=== PATIENT | male | born 1955 | race Caucasian/White ===

== ENCOUNTER 2018-08-30 19:12 | Inpatient (IN) | payer OTHER ==
--- NOTE | 2018-08-30 19:23 | PDOC ---
Rapid Medical Evaluation Time Seen by Provider: 08/30/18 19:20 Medical Evaluation: 08/30/18 19:21 I have performed a brief in-person evaluation of this patient. The patient presents with a chief complaint of:URI w/ cough w/ blood streaked sputum and fever x 3 days. No sob, CP or body aches. No recent travel or sick contacts. H/o HTN, former smoker (smoked for 20 years) Pertinent physical exam findings:BP 162/98 (did not take meds today), T 100.3 w / HR 114 I have ordered the following: tylenol/cxr/flu The patient will proceed to the ED for further evaluation Discharge Disposition - Diagnosis Cough - Referrals - Patient Instructions - Post Discharge Activity
[2018-08-30] MEDS ORDERED: ACETAMINOPHEN 325 MG TABLET (FP) PO ONE (19:25)
--- NOTE | 2018-08-30 19:34 | PDOC ---
History of Present Illness - General Chief Complaint: Cold Symptoms Stated Complaint: COUGH UP BLOOD/FEVER Time Seen by Provider: 08/30/18 19:20 History Source: Patient - History of Present Illness Initial Comments: 08/30/18 19:55 63 year old male cough and uri symptoms for the last 4 days today with persistent cough and coughed up clots. had tactile temps at home. patient reports shortness of breath patient also reports abdominal bloating, denies NVD , abdominal pain. denies recent weight loss, night sweats, hemoptysis prior to today. PMHX: former smoker x 20 years, hypertension PSHx: rectal surgery 4 years ago [facility] denies recent travel 08/30/18 23:09 Past History - Past Medical History Allergies/Adverse Reactions: Allergies Allergy/AdvReac Type Severity Reaction Status Date / Time No Known Allergies Allergy Verified 08/30/18 19:38 Home Medications: Ambulatory Orders Enalapril Maleate [Vasotec -] 5 mg PO BID #60 tablet 09/02/18 Levofloxacin [Levaquin] 500 mg PO DAILY #4 tablet 09/02/18 Sodium Chloride Tablet - 1 gm PO DAILY #4 tablet 09/02/18 COPD: No - Suicide/Smoking/Psychosocial Hx Smoking History: Former smoker Have you smoked in the past 12 months: No Information on smoking cessation initiated: No Hx Alcohol Use: Yes (socially) Drug/Substance Use Hx: No Review of Systems - Review of Systems Able to Perform ROS?: Yes Is the patient limited Korean proficient: No Constitutional: Yes: Fever Respiratory: Yes: Cough, SOB with Exertion, SOB at Rest, Productive cough, Hemoptysis Cardiac (ROS): No: Symptoms Reported, See HPI, Chest Pain, Edema, Irregular Heart Rate, Lightheadedness, Palpitations, Syncope, Chest Tightness, Other ABD/GI: Yes: Other (bloatins) *Physical Exam - Vital Signs Last Vital Signs Temp Pulse Resp BP Pulse Ox 100.3 F H 114 H 19 162/98 100 08/30/18 19:23 18 19:23 12 19:23 08/30/18 19:23 08/30/18 19:23 - Physical Exam General Appearance: Yes: Appropriately Dressed HEENT: positive: Normal ENT Inspection Respiratory/Chest: positive: Lungs Clear, Normal Breath Sounds, Rales ( at bases ) Cardiovascular: positive: Tachycardia Gastrointestinal/Abdominal: positive: Normal Bowel Sounds, Soft. negative: Tender Musculoskeletal: positive: Normal Inspection Extremity: positive: Normal Capillary Refill, Normal Inspection, Normal Range of Motion Integumentary: positive: Normal Color, Dry, Warm Neurologic: positive: Fully Oriented, Alert, Normal Mood/Affect Moderate Sedation - Procedure Monitoring Vital Signs: Procedure Monitoring Vital Signs Temperature 100.3 F H 08/30/18 19:23 Pulse Rate 114 H 08/30/18 19:23 Respiratory Rate 19 08/30/18 19:23 Blood Pressure 162/98 08/30/18 19:23 O2 Sat by Pulse Oximetry (%) 100 08/30/18 19:23 ED Treatment Course - LABORATORY CBC & Chemistry Diagram: 09/02/18 05:30 09/02/18 05:30 Progress Note - Progress Note Progress Note: A pneumonia . SIRS; lung mass cbc blood clots lactic acid ua urine culture patient to be admitted for further management of care. Medical Decision Making - Medical Decision Making 08/30/18 20:48 CHEST xray : left upper lobe pneumonia, will CT chest with IV contrast 08/30/18 21:58 08/30/18 22:40 CT chest :very large central left lung mass invading the mediastinum and encasing left main pulmonary artery. The mass is strongly suspicious for malignancy. Postoperative lingula consolidation. Left pleural effusion. Mild mediastinal lymphadenopathy. Patient signed out to Dr. Talbert/ Dr. trevizo *DC/Admit/Observation/Transfer Diagnosis at time of Disposition: Mass of lung Pneumonia Qualifiers: Pneumonia type: due to unspecified organism Laterality: left Lung location: upper lobe of lung Qualified Code(s): J18.1 - Lobar pneumonia, unspecified organism - Discharge Dispostion Disposition: AGAINST MEDICAL ADVICE Condition at time of disposition: Fair Decision to Admit order: Yes - Prescriptions - Referrals - Patient Instructions - Post Discharge Activity
[2018-08-30] MEDS ORDERED: SODIUM CHLORIDE 1,000 ML IV STA (19:47)
[2018-08-30] MEDS ORDERED: ENALAPRIL MALEATE 5 MG TABLET (FP) PO ONE (19:47)
[2018-08-30] MEDS ORDERED: CEFTRIAXONE 1,000 MG in DEXTROSE 5%-WATER - 50 ML IVPB ONE (20:15)
[2018-08-30] MEDS ORDERED: AZITHROMYCIN IVPB 500 MG in DEXTROSE 5%-WATER - 250 ML IVPB ONE (20:15)
[2018-08-30] MEDS ORDERED: ENALAPRIL MALEATE 5 MG TABLET (FP) ONE (20:15)
[2018-08-30 20:25] LABS: VENOUS PC02 29.1 mmHg (38-52); VENOUS PH 7.45 (7.32-7.42); VENOUS PO2 63.6 mmHg (28-48)
[2018-08-30 20:27] LABS: BASO % 0.4 % (0-2.0); EOS % 1.4 % (0-4.5); HEMOGLOBIN 13.6 GM/dL (11.7-16.9); LYMPH % 17.3 % (8-40); MCH 31.8 pg (25.7-33.7); MCHC 35.7 g/dl (32.0-35.9); MEAN CELL VOLUME 89.1 fl (80-96); MEAN PLT VOLUME 7.1 fl (7.5-11.1); MONO % 10.3 % (3.8-10.2); NEUT % 70.6 % (42.8-82.8); PLATELET COUNT 309 K/MM3 (134-434); RBC 4.26 M/mm3 (4.00-5.60); RDW 12.8 % (11.9-15.9); WHITE BLOOD COUNT 6.8 K/mm3 (4.0-10.0)
[2018-08-30] MEDS ORDERED: AZITHROMYCIN IVPB 500 MG/250 ML BAG IVPB ONE (20:27)
[2018-08-30] MEDS ORDERED: CEFTRIAXONE 1 GM/50 ML BAG ONE (20:27)
--- NOTE | 2018-08-30 20:36 | PDOC ---
*Physical Exam - Vital Signs Last Vital Signs Temp Pulse Resp BP Pulse Ox 100.3 F H 114 H 19 162/98 100 08/30/18 19:23 08/30/18 19:23 08/30/18 19:23 08/30/18 19:23 08/30/18 19:23 ED Treatment Course - LABORATORY CBC & Chemistry Diagram: 08/30/18 20:09 08/30/18 20:09 - ADDITIONAL ORDERS Additional order review: Laboratory Results 08/30/18 20:09 VBG pH 7.45 H POC VBG pCO2 29.1 L POC VBG pO2 63.6 H Mixed VBG HCO3 20.1 08/30/18 20:09 RBC 4.26 MCV 89.1 MCHC 35.7 RDW 12.8 MPV 7.1 L Neutrophils % 70.6 Lymphocytes % 17.3 Monocytes % 10.3 H Eosinophils % 1.4 Basophils % 0.4 - Medications Given in the ED: ED Medications Discontinued Medications Generic Name Dose Route Start Last Admin Trade Name Freq PRN Reason Stop Dose Admin Acetaminophen 650 mg 08/30/18 19:25 08/30/18 19:42 Tylenol - PO 08/30/18 19:26 650 mg ONCE ONE Administration Enalapril Maleate 5 mg 08/30/18 19:47 08/30/18 20:23 Vasotec - PO 08/30/18 19:48 5 mg ONCE ONE Administration Medical Decision Making - Medical Decision Making 08/30/18 20:33 Evaluating pt with Nurse Practitioner and agree with her assessment and management of the case. 63 yo male with 20 pk yr h/o tobacco use p/w hemoptysis,fever and cxr with infiltrates. Will ct scan chest to r/o mass. Start antibiotics and admit. *DC/Admit/Observation/Transfer Diagnosis at time of Disposition: Pneumonia Qualifiers: Pneumonia type: due to unspecified organism Laterality: left Lung location: upper lobe of lung Qualified Code(s): J18.1 - Lobar pneumonia, unspecified organism - Referrals - Patient Instructions - Post Discharge Activity
[2018-08-30 20:57] LABS: ALBUMIN 3.4 g/dl (3.4-5.0); ALK PHOS 62 U/L (45-117); ANION GAP 10 MMOL/L (8-16); BILIRUBIN,TOTAL 0.5 mg/dL (0.2-1); BLOOD UREA NITROGEN 9 mg/dL (7-18); CALCIUM 8.3 mg/dL (8.5-10.1); CHLORIDE 97 mmol/L (98-107); CO2 23 mmol/L (21-32); CREATININE 0.9 mg/dL (0.55-1.3); GLUCOSE,RANDOM 130 mg/dL (74-106); POTASSIUM 4.1 mmol/L (3.5-5.1); SGOT/AST 14 U/L (15-37); SGPT/ALT 17 U/L (13-61); SODIUM 130 mmol/L (136-145); TOT PROT 7.2 g/dl (6.4-8.2)
[2018-08-30 23:12] LABS: URINE APPEARANCE CLEAR; URINE BILIRUBIN NEGATIVE (<2.0 mg/dL); URINE COLOR STRAW; URINE GLUCOSE (UA) NEGATIVE (NEGATIVE); URINE KETONE NEGATIVE (NEGATIVE); URINE LEUK ESTERASE NEGATIVE (NEGATIVE); URINE NITRITE NEGATIVE (NEGATIVE); URINE PROTEIN NEGATIVE (NEGATIVE); URINE UROBILINOGEN NEGATIVE mg/dL (0.2-1.0)
[2018-08-30] MEDS ORDERED: LACTATED RINGERS SOLUTION 1,000 ML IV SCH (23:15)
--- NOTE | 2018-08-30 23:59 | HP ---
CHIEF COMPLAINT: SOB, cough PCP: none HISTORY OF PRESENT ILLNESS: Patient is a 63 y/o M w/ PMHx HTN, presents w/ cough, SOB, dizziness, generalized malaise x 4 days. Presents to ED today after multiple episodes of hemoptysis producing large volume clots. Additionally c/o headaches for past month, predominantly right retro-orbital region. Approximately one week ago had episode where he developed headache, was shaking and fell; denies LOC or head trauma, denies loss of continence, no prior seizure history. Reports ~5 lbs intentional weight loss over past month from skipping meals, no unintentional weight loss, no night sweats, no chills. Does endorse tactile temperatures. On presentation, T 100.3, tachycardic to 114, BP 162/98 (reports not taking enalapril), RR 20. Saturating well on RA. No leukocytosis. D-dimer positive to 1498. Hyponatremia to 130. Lactate negative, trop negative, LFT wnl, BCx pending. CXR shows lingular/ZENY consolidation c/w PNA. Chest CT shows 9x7cm spiculated mass encasing left main pulmonary artery, post-obstructive lingular consolidation, left pleural effusion, mediastinal lymphadenopathy. In ED given 1L NS bolus, ceftriaxone, azithromycin, and restarted on enalapril. ER course was notable for: (1) CT chest suggestive of obstructive PNA 2/2 at least locally advanced malignancy (2) D-dimer 1498 (3) Na 130 Recent Travel: PAST MEDICAL HISTORY: PAST SURGICAL HISTORY: Rectal fistula repair in [place] 5 years ago Social History: Smokin+ pack year history, quit 10 years ago Alcohol: Drugs: -uninsured, last received health care in [place] [id number] Family History: Allergies No Known Allergies Allergy (Verified 08/30/18 19:38) HOME MEDICATIONS: Home Medications Medication Instructions Recorded Enalapril Maleate [Vasotec] 5 mg PO DAILY 08/30/18 REVIEW OF SYSTEMS As per HPI PHYSICAL EXAMINATION Vital Signs - 24 hr 08/30/18 19:23 Temperature 100.3 F H Pulse Rate 114 H Respiratory 19 Rate Blood Pressure 162/98 O2 Sat by Pulse 100 Oximetry (%) GENERAL: A&Ox3, NAD HEAD: NC/AT EYES: Pupils equal, round and reactive to light, extraocular movements intact, sclera anicteric, conjunctiva clear. No lid lag. EARS, NOSE, THROAT: Ears normal, nares patent, oropharynx clear without exudates. Moist mucous membranes. NECK: Normal range of motion, supple without JVD, or masses. LYMPHATICS: No cervical, supraclavicular, or axillary LAD LUNGS: Rales at left lung base HEART: borderline tachycardic, regular rhythm, no m/r/g ABDOMEN: +bs, soft, NT, ND MUSCULOSKELETAL: Normal range of motion at all joints. No bony deformities or tenderness. No CVA tenderness. UPPER EXTREMITIES: 2+ pulses, warm, well-perfused. No cyanosis. No clubbing. No peripheral edema. LOWER EXTREMITIES: 2+ pulses, warm, well-perfused. No calf tenderness. No peripheral edema. NEUROLOGICAL: CN II-XII intact b/l, 5/5 motor strength proximally and distally at all extremities, no sensory deficits, gait not observed PSYCHIATRIC: Cooperative. Good eye contact. Appropriate mood and affect. SKIN: Warm, dry, normal turgor, no rashes or lesions noted, normal capillary refill. Laboratory Results - last 24 hr 08/30/18 08/30/18 08/30/18 19:35 20:09 20:09 WBC 6.8 RBC 4.26 Hgb 13.6 Hct 38.0 MCV 89.1 MCH 31.8 MCHC 35.7 RDW 12.8 Plt Count 309 MPV 7.1 L Absolute Neuts (auto) 4.8 Neutrophils % 70.6 Lymphocytes % 17.3 Monocytes % 10.3 H Eosinophils % 1.4 Basophils % 0.4 Nucleated RBC % 0 D-Dimer 1498 H VBG pH POC VBG pCO2 POC VBG pO2 Mixed VBG HCO3 Sodium Potassium Chloride Carbon Dioxide Anion Gap BUN Creatinine Creat Clearance w eGFR Random Glucose Lactic Acid Calcium Total Bilirubin AST ALT Alkaline Phosphatase Creatine Kinase Troponin I Total Protein Albumin Urine Color Urine Appearance Urine pH Ur Specific [place] Urine Protein Urine Glucose (UA) Urine Ketones Urine Blood Urine Nitrite Urine Bilirubin Urine Urobilinogen Ur Leukocyte Esterase Influenza A (Rapid) Negative Influenza B (Rapid) Negative 08/30/18 08/30/18 08/30/18 20:09 20:09 20:09 WBC RBC Hgb Hct MCV MCH MCHC RDW Plt Count MPV Absolute Neuts (auto) Neutrophils % Lymphocytes % Monocytes % Eosinophils % Basophils % Nucleated RBC % D-Dimer VBG pH 7.45 H POC VBG pCO2 29.1 L POC VBG pO2 63.6 H Mixed VBG HCO3 20.1 Sodium 130 L Potassium 4.1 Chloride 97 L Carbon Dioxide 23 Anion Gap 10 BUN 9 Creatinine 0.9 Creat Clearance w eGFR > 60 Random Glucose 130 H Lactic Acid 0.9 Calcium 8.3 L Total Bilirubin 0.5 AST 14 L ALT 17 Alkaline Phosphatase 62 Creatine Kinase 100 Troponin I < 0.02 Total Protein 7.2 Albumin 3.4 Urine Color Urine Appearance Urine pH Ur Specific [place] Urine Protein Urine Glucose (UA) Urine Ketones Urine Blood Urine Nitrite Urine Bilirubin Urine Urobilinogen Ur Leukocyte Esterase Influenza A (Rapid) Influenza B (Rapid) 08/30/18 22:29 WBC RBC Hgb Hct MCV MCH MCHC RDW Plt Count MPV Absolute Neuts (auto) Neutrophils % Lymphocytes % Monocytes % Eosinophils % Basophils % Nucleated RBC % D-Dimer VBG pH POC VBG pCO2 POC VBG pO2 Mixed VBG HCO3 Sodium Potassium Chloride Carbon Dioxide Anion Gap BUN Creatinine Creat Clearance w eGFR Random Glucose Lactic Acid Calcium Total Bilirubin AST ALT Alkaline Phosphatase Creatine Kinase Troponin I Total Protein Albumin Urine Color Straw Urine Appearance Clear Urine pH 6.0 Ur Specific [place] 1.027 Urine Protein Negative Urine Glucose (UA) Negative Urine Ketones Negative Urine Blood Negative Urine Nitrite Negative Urine Bilirubin Negative Urine Urobilinogen Negative Ur Leukocyte Esterase Negative Influenza A (Rapid) Influenza B (Rapid) ASSESSMENT/PLAN: 63 y/o M w/ PMHx HTN p/w cough, SOB, malaise x 1 week, hemoptysis of large volume clots x 1 day, additionally experiencing dizziness and headaches and had 1 episode of seizure-like activity. Initial imaging studies demonstrate obstructive PNA 2/2 likely lung Ca. #PNA/lung mass -cont Ceftriaxone/Azithromycin -LR @ 50 -hyponatremia, headaches, dizziness, seizure-like episode concerning for brain mets -Brain MRI ordered -pulmonology consulted -oncology consulted -patient is uninsured and will need extensive w/u and treatment; social work should be contacted as early as possible to arrange emergency healthcare provisions #HTN -cont enalapril #FEN -LR @ 50 -monitor and replete lytes -regular diet #PPx -DVT: lovenox subq -GI: not indicated #code -full #dispo -admit to med/surg Visit type - Emergency Visit Emergency Visit: Yes Care time: The patient presented to the Emergency Department on the above date and was hospitalized for further evaluation of their emergent condition. - New Patient This patient is new to me today: Yes Date on this admission: 08/30/18 - Critical Care Critical Care patient: No
--- NOTE | 2018-08-31 00:36 | PN ---
Teaching Attending Note Name of Resident: Eb Manzano ATTENDING PHYSICIAN STATEMENT I saw and evaluated the patient. I reviewed the resident's note and discussed the case with the resident. I agree with the resident's findings and plan as documented. SUBJECTIVE: Seen and examined; please see resident note for further documentation. In summation, this is a 63 y/o male presenting to the ER with a CC of hemoptysis with cough and subjective fevers that has been worsening over the past few days ; he also had a transient episode of dizziness earlier in the month. He is having low grade fevers and is mildly tachycardic at the time of our encounter. In terms of the hemoptysis, he has never had these sx before, nothing makes them better or worse, he is a former smoker but hasn't smoked in ~10 years. No recent abx, no recent MD visits and doesn't regularly follow with doctor. Came here 10 years ago with family from [facility]. Earlier this month he had an episode of presyncope that hasn't recurrent; no stereotyped elements of vertigo, etc. No prior visits, no neuroimaging. He came tonight at the behest of his family who were concerned about his progressive sx. He is aware of the imaging findings and the general outline of the plan, and we spent a good amount of time discussing things with his and daughter. 10 sys ROS done and negative aside from HPI PMH and PSH reviewed; he has a history of HTN on enalapril and had some rectal surgery (fistula repair?) years ago FH asked and noncontributory; denies h/o malignancy Social history he is a former smoker who quit 10 years ago; no alcohol/drug abuse. Good family support. Medication list reviewed with resident team OBJECTIVE: VS, labs, imaging reviewed NAD, resting in bed, AAO Slightly tachy high 90s-low 100s, no kashif mgr Lungs with L-sided diminished sounds with surrounding rales, sym CW expansion NT ND +BS NC AT EOMI PERRLA CN2-12 wnl, no fnd No calf tenderness or LE edema, normal muscle tone Labs reviewed; hyponatremia to 130 with slight hyperglycemia to 130. D-dimer 1498 Cultures pending EKG sinus tachy; tele reviewed CT chest with central L-lung mass invading the mediastinum and encasing the L- main pulmonary artery suspicious for malignancy ([id number] in dimension per read) . This is associatd with a L-pleural effusion and a post-obstructive lingular consolidation alongside mild mediastinal LN with 11mm anterior being the largest one. CXR reviewed Echo, MRI, additional labs pending ASSESSMENT AND PLAN: Mr. Tidwell is a 63 y/o male presenting with hemoptysis/subjective fevers found to have a 9x7x9 L-lung mass with associated post-obstuctive PNA and effusion. 1) Hemoptysis -Likely 2/2 lung mass -SCDs for AC for now; will DW heme onc in the AM regarding additional ppx 2) L-lung mass w/ effusion -Suspicious for malignancy; +smoking hx noted -Consulting pulmonary medicine for eval. ?Bronchoscopic bx vs. other approach? -IR-guided thoracentesis ordered for diagnostic purposes; will send out cytology and fluid studies. -Consulting hematology/oncology for recommendations regarding further inpatient diagnostic workup. -Given the transient dizziness will order MRI with contrast of his brain for tomorrow (got contrast with his CTA) -Though less likely, was in endemic area so will check quantiferon for TB. -Given the encasement of the pulmonary A. on the CT will check for any R-heart strain, etc. with 2D echo 3) Post Obstructive PNA -Placing empirically on levaquin and clinda to cover for CAP + Anaerobes; monitor qTC -Followup blood, sputum cultures -Urine Ag legionella/pnc; check ESR/CRP -Incentive spirometry, PRN O2 -Further management per pulmonary medicine 4) Elevated D-Dimer -Negative study for PE; could be due to cancer, etc. 5) Dizziness -Will r/o mets with MRI brain w/ contrast -Monitor for arrhythmias on telemetry 6) Hyperglycemia -Check A1c, TSH, lipids. Doesn't see MD regularly 7) HTN -Hold home enalapril for now; restart when clinically appropriate 8) Tachycardia -Could be due to insensible losses from febrile illness, intrinsic CV issue, or due to PA encasement with the mass. Will monitor tele, check echo, empirically hydrate gently. BP normal. Check BMP and Mg 9) Hyponatremia -130; euvolemic to slightly hypovolemic in ER -Checking serum/urine osm, urine Na. Gentle hydration as slightly dry while taking care not to overcorrect. Check AM labs at 4AM. -Ddx of course includes 2/2 fluid depletion, etc. but given the mass and dizziness must r/o things like SIADH, etc. FENA -LR@75 -PRN replete -Regular diet -As tolerated Full Code
[2018-08-31] MEDS ORDERED: CLINDAMYCIN 600MG PREMIX IVPB 600 MG/50 ML BAG IVPB ONE (02:37)
[2018-08-31] MEDS: CLINDAMYCIN 600MG PREMIX IVPB 600 MG/50 ML BAG IVPB SCH ×3 (02:41→17:53)
[2018-08-31 05:35] VITALS: BMI 29.2
[2018-08-31] MEDS ORDERED: ENALAPRIL MALEATE 5 MG TABLET (FP) PO ONE ×2 (06:11→16:52)
[2018-08-31 06:24] LABS: BASO % 0.4 % (0-2.0); EOS % 1.9 % (0-4.5); HEMATOCRIT 36.8 % (35.4-49); HEMOGLOBIN 12.4 GM/dL (11.7-16.9); LYMPH % 13.3 % (8-40); MCH 30.6 pg (25.7-33.7); MCHC 33.6 g/dl (32.0-35.9); MEAN CELL VOLUME 90.8 fl (80-96); MEAN PLT VOLUME 6.9 fl (7.5-11.1); MONO % 10.5 % (3.8-10.2); NEUT % 73.9 % (42.8-82.8); PLATELET COUNT 277 K/MM3 (134-434); RBC 4.05 M/mm3 (4.00-5.60); RDW 12.8 % (11.9-15.9); WHITE BLOOD COUNT 6.9 K/mm3 (4.0-10.0)
[2018-08-31 06:33] LABS: INR 1.27 (0.83-1.09)
[2018-08-31 06:35] LABS: ACTIVATED PTT 36.2 SECONDS (25.2-36.5)
[2018-08-31 07:08] LABS: ALBUMIN 2.9 g/dl (3.4-5.0); ALK PHOS 54 U/L (45-117); ANION GAP 9 MMOL/L (8-16); BILIRUBIN,TOTAL 0.4 mg/dL (0.2-1); BLOOD UREA NITROGEN 10 mg/dL (7-18); CHLORIDE 99 mmol/L (98-107); CO2 25 mmol/L (21-32); CREATININE 0.8 mg/dL (0.55-1.3); GLUCOSE,RANDOM 101 mg/dL (74-106); LDH 168 U/L (87-246); MAGNESIUM 2.1 mg/dL (1.8-2.4); PHOSPHOROUS 3.2 mg/dL (2.5-4.9); POTASSIUM 4.3 mmol/L (3.5-5.1); SGOT/AST 15 U/L (15-37); SGPT/ALT 16 U/L (13-61); SODIUM 133 mmol/L (136-145); TOT PROT 6.4 g/dl (6.4-8.2)
[2018-08-31] MEDS ORDERED: PNEUMOC 13-VAL CONJ-DIP CRM/PF 0.5 ML DISP.SYRIN IM ONE (09:00)
[2018-08-31] MEDS ORDERED: PNEUMOCOCCAL 23 VACCINE 0.5 ML VIAL IM ONE (09:00)
[2018-08-31] MEDS ORDERED: AZITHROMYCIN IVPB 500 MG in DEXTROSE 5%-WATER - 250 ML IVPB SCH (10:00)
[2018-08-31] MEDS ORDERED: CEFTRIAXONE 1 GM in DEXTROSE 5%-WATER - 50 ML IVPB SCH (10:00)
[2018-08-31] MEDS ORDERED: ENOXAPARIN NA (PORCINE) 40 MG/0.4 ML DISP.SYRIN SQ SCH (10:00)
[2018-08-31] MEDS ORDERED: ENALAPRIL MALEATE 5 MG TABLET (FP) PO SCH (10:00)
--- NOTE | 2018-08-31 11:31 | PN ---
Progress Note (short form) - Note Progress Note: PULMONARY CONSULTATION DICTATED 08/31/18 IMP LEFT CENTRAL LUNG MASS C/W LUNG CA LIKELY SMALL CELL OR SQUAMOUS CELL POST OBSTRUCTIVE PNEUMONIA HEMOPTYSIS HYPONATREMIA HTN PLAN ABX FLEX BRONCHOSCOPY SPUTUM CYTOLOGY MONITOR LYTES URINE LYTES DR ARORA Problem List - Problems (1) Hyponatremia Code(s): E87.1 - HYPO-OSMOLALITY AND HYPONATREMIA (2) Mass of lung Code(s): R91.8 - OTHER NONSPECIFIC ABNORMAL FINDING OF LUNG FIELD (3) Pneumonia Code(s): J18.9 - PNEUMONIA, UNSPECIFIED ORGANISM Qualifiers: Pneumonia type: due to unspecified organism Laterality: left Lung location: upper lobe of lung Qualified Code(s): J18.1 - Lobar pneumonia, unspecified organism (4) HTN (hypertension) Code(s): I10 - ESSENTIAL (PRIMARY) HYPERTENSION (5) Hemoptysis Code(s): R04.2 - HEMOPTYSIS
--- NOTE | 2018-08-31 12:25 | CONS ---
DATE OF CONSULTATION: 08/31/2018 PULMONARY CONSULTATION REFERRING PHYSICIAN: Abby Head MD Patient is a 63-year-old male with a past medical history of hypertension, history of tobacco use, approximately 3 packs per day for approximately 30 years, quit approximately 10 years ago, admitted to [facility] with complaint of 1-week history of increasing shortness of breath, cough, dizziness, and generalized malaise. Patient denied any chest pain, nausea, vomiting, or diaphoresis. Apparently, he has been having headaches for the past month, right side retro-orbital region. Patient also has been complaining of hemoptysis for the past few days. A small quantity of heme. He presented to the emergency room. In the ER he was noted to be having a low-grade temperature of 100.3 and to be tachycardic. He had a chest CT performed which revealed 9.7-cm central mass encasing the left pulmonary artery with possibly postobstructive lingular consolidation. In the ER he was treated with IV saline, inhaled bronchodilators, as well as antibiotics, and transferred to the medical floor for further management. Patient has not had a chest x-ray in greater than 10 years. He denies any history of occupational exposure to chemicals or fumes. There is no history of recent travel. He was born in [place] and moved to the [place] years ago. There is no history of hemoptysis prior to this. No history of pneumonia as well as TB in the past. PAST MEDICAL HISTORY: Again includes hypertension. REVIEW OF SYSTEMS: Positive for shortness of breath. Positive for cough. Positive hemoptysis. Positive headaches. No chest pain. Positive fever. No nausea. No vomiting. Positive weight loss. SOCIAL HISTORY: History of tobacco use, the 3 packs per day for 30 years, quit 10 years ago. Born in [place], moved to the [facility] in 2011. CURRENT MEDICATIONS: Include clindamycin, Levaquin, and lactate ringers. PHYSICAL EXAMINATION: General: Patient is a well-developed, well-nourished male, awake, alert, in no acute distress. He is afebrile. Vital Signs: Blood pressure is 154/101, respiratory rate is 18, and O2 saturation is 98% on 3 L. HEENT: Exam is normocephalic, atraumatic. Neck: Supple. Heart: Regular, S1, S2. Chest: Diminished breath sounds. A few crackles on the left. Abdomen: Soft. Bowel sounds positive. Extremities: No cyanosis or edema. LABORATORIES: WBC is 6.9, hemoglobin 12.4, hematocrit 36.8, platelet count 277,000. INR is 1.27. D-dimer is 1498. Blood gas with pH 7.45, PCO2 is 29, PO2 of 63. Chemistry: Sodium on admission is 130, currently 133. CRP is 12.6. Chest CT again revealed wide central mass invading the mediastinum and encasing the left pulmonary artery, postobstructive lingular consolidation, and mediastinal adenopathy. IMPRESSION: 1. Left central mass likely bronchogenic carcinoma, likely small cell as well as adenocarcinoma or squamous cell. 2. Postobstructive pneumonia. 3. History of tobacco use. 4. Hypertension. 5. Hemoptysis. PLAN: IV antibiotics. Supplemental O2. Sputum C and S. Also arrange bronchoscopy to obtain tissue diagnosis and evaluate airways. Monitor electrolytes. Serum sodium. Monitor urine electrolytes. Possible SIADH. ANJALI ARORA M.D. TUSHAR/[id number]
--- NOTE | 2018-08-31 12:57 | EKG ---
Test Reason : Blood Pressure : / mmHG Vent. Rate : 095 BPM Atrial Rate : 095 BPM P-R Int : 162 ms QRS Dur : 088 ms QT Int : 342 ms P-R-T Axes : 061 -01 032 degrees QTc Int : 429 ms NORMAL SINUS RHYTHM NORMAL ECG NO PREVIOUS ECGS AVAILABLE Confirmed by Eduar Clark ([id number]) on 08/31/2018 12:57:31 PM Referred By: Confirmed By:Eduar Clark
--- NOTE | 2018-08-31 14:43 | CONSULT ---
Consultation: REQUESTING PROVIDER: Dr. Fung CONSULT REQUEST FOR HEMATOLOGY/ONCOLOGY: We have been asked to medically evaluate this patient for Lung mass. HISTORY OF PRESENT ILLNESS: Patient is a 63 year old male with a PMHx of HTN who presented to the hospital complaining of worsening shortness of breath associated with dry cough, fever, and malaise for the past week. According to patients daughter at bedside, patient had "cold-like" symptoms in the last 1.5 weeks with cough, runny nose, malaise, and weakness. Patient's daughter states they thought it was the flu and let it run its course. However, in the last 2-3 days patient started coughing up blood of about 1ml a few times a day. Patient continued to cough up blood and yesterday had large clots of blood when he coughed, which prompted this hospital visit. Patient also complained of headaches and described the headaches as a sharp headache in the retro-orbital and frontal area. Patient otherwise denies any chest pain, abdominal pain, vomiting, dysuria, hematuria, melena, hematochezia, seizure hx, loss of consciousness, recent trauma or injury, recent fall, urinary or bladder incontinence. Chest X-Ray done, which revealed ZENY PNA and CT chest revealed 9x7cm spiculated mass encasing left main pulmonary artery, post-obstructive lingular consolidation, left pleural effusion, mediastinal lymphadenopathy, concerning for malignancy. We were consulted for further evaluation. PMHx: HTN PSHx: Rectal fistula repair in [facility] 11 years ago Social History: Smoking: Former smoker. Quit 11 years ago. Smoked 2-3 PPD for 20+ years Alcohol: Denies Drugs: Denies REVIEW OF SYSTEMS: CONSTITUTIONAL: fever, generalized weakness, malaise, loss of appetite, weight change Absent: chills, diaphoresis, HEENT: Absent: rhinorrhea, nasal congestion, throat pain, throat swelling, difficulty swallowing, mouth swelling, ear pain, eye pain, visual changes CARDIOVASCULAR: Absent: chest pain, syncope, palpitations, irregular heart rate, lightheadedness , peripheral edema RESPIRATORY: cough, shortness of breath, dyspnea with exertion Absent: orthopnea, wheezing, stridor, hemoptysis GASTROINTESTINAL: Absent: abdominal pain, abdominal distension, nausea, vomiting, diarrhea, constipation, melena, hematochezia GENITOURINARY: Absent: dysuria, frequency, urgency, hesitancy, hematuria, flank pain, genital pain MUSCULOSKELETAL: Absent: myalgia, arthralgia, joint swelling, back pain, neck pain SKIN: Absent: rash, itching, pallor HEMATOLOGIC/IMMUNOLOGIC: Absent: easy bleeding, easy bruising, lymphadenopathy, frequent infections ENDOCRINE: Absent: unexplained weight gain, unexplained weight loss, heat intolerance, cold intolerance NEUROLOGIC: Absent: headache, focal weakness or paresthesias, dizziness, unsteady gait, seizure, mental status changes, bladder or bowel incontinence PSYCHIATRIC: Absent: anxiety, depression, suicidal or homicidal ideation, hallucinations. PHYSICAL EXAMINATION Vital Signs - 24 hr 08/31/18 08/31/18 09:00 09:56 Temperature 97.7 F Pulse Rate 107 H Respiratory 20 18 Rate Blood Pressure 154/101 H O2 Sat by Pulse 98 Oximetry (%) GENERAL: Awake, alert, and fully oriented, in no acute distress. HEAD: Normal with no signs of trauma. EYES: Pupils equal, round and reactive to light, extraocular movements intact, sclera anicteric, conjunctiva clear. No lid lag. EARS, NOSE, THROAT: Oropharynx clear without exudates. Moist mucous membranes. NECK: (-) lymphadenopathy, JVD, or masses. LUNGS: Rales heard at the left bases with no accessory muscle use. HEART: Tachycardic with regular rhythm, normal S1 and S2 ABDOMEN: Soft, nontender, not distended, normoactive bowel sounds, no guarding, no rebound, no masses. No hepatomegaly or splenomegaly. EXTREMITIES: No calf tenderness. No peripheral edema. NEUROLOGICAL: Cranial nerves II-XII intact. Normal speech. PSYCHIATRIC: Cooperative. Good eye contact. Appropriate mood and affect. SKIN: Warm, dry, normal turgor, no rashes or lesions noted. Laboratory Results 08/31/18 05:30 08/31/18 05:30 08/31/18 08/31/18 05:30 05:30 INR 1.27 H C-Reactive Protein 12.6 H Total Protein 6.4 Albumin 2.9 L TSH 1.16 Active Medications Generic Name Dose Route Start Last Admin Trade Name Freq PRN Reason Stop Dose Admin Enalapril Maleate 5 mg 08/31/18 10:00 08/31/18 10:09 Vasotec - PO 5 mg DAILY SAMMY Administration Lactated Ringer's 1,000 mls @ 50 mls/hr 08/30/18 23:15 08/31/18 00:35 Lactated Ringers Solution IV 50 mls/hr ASDIR SAMMY Administration Levofloxacin 500 mg in 100 mls @ 100 mls/hr 08/31/18 20:00 Levaquin 500 Mg Premixed Ivpb - IVPB DAILY SAMMY Protocol Clindamycin Phosphate 600 mg in 50 mls @ 100 mls/hr 08/31/18 02:00 08/31/18 10:10 Cleocin 600 Mg Premix Ivpb - IVPB 100 mls/hr Q8H-IV SAMMY Administration Protocol ASSESSMENT/PLAN: Patient is a 63 year old male who presented for shortness of breath associated with hemoptysis. CT done which revealed a spiculated lung mass with mediastinal lymphadenopathy and Pneumonia, concerning for malignancy. We were consulted for further evaluation. Problem List: Hemoptysis Shortness of breath Mediastinal lymphadenopathy Pneumonia Lung Mass Headaches HTN PLAN: -High suspicion for malignancy due to patient's CT findings, clinical picture, and history of smoking. Will need bronchoscopy/biopsy for diagnostic purposes. -Sputum cytology recommended -Will require further evaluation with MRI of the brain and CT of A/P for any lesions or mets -Will need to rule out TB and PE as they are some causes of hemoptysis -Continue abx for PNA, as per ID Dispo: We will continue to follow the patient. Thank you for this consultative opportunity. Visit type - Emergency Visit Emergency Visit: Yes ED Registration Date: 08/30/18 Care time: The patient presented to the Emergency Department on the above date and was hospitalized for further evaluation of their emergent condition. - New Patient This patient is new to me today: Yes Date on this admission: 08/31/18 - Critical Care Critical Care patient: No
--- NOTE | 2018-08-31 14:43 | ECHO ---
Name: ROJAS ALFARO Exam:Adult Echocardiogram Study Date: 08/31/2018 08:54 AM Age: 63 yrs Reason For Study: EVAL LVEF RVEF Height: 67 in Weight: 187 lb BSA: 2.0 m2 MMode/2D Measurements & Calculations IVSd: 0.86 cm Ao root diam: 3.1 cm LVIDd: 4.6 cm LA dimension: 3.3 cm LVPWd: 0.80 cm EDV(Teich): 95.7 ml TAPSE: 2.9 cm Doppler Measurements & Calculations MV E max rob: 96.7 cm/sec Ao V2 max: 145.9 cm/sec MV A max rob: 126.9 cm/sec Ao max P.5 mmHg MV E/A: 0.76 MV dec time: 0.13 sec LV V1 max P.1 mmHg TR max rob: 266.0 cm/sec LV V1 max: 101.7 cm/sec TR max P.4 mmHg Med Peak E' Rob: 10.7 cm/sec Med E/e': 9.0 Lat Peak E' Rob: 10.6 cm/sec Lat E/e': 9.1 Procedure The study was technically adequate with some images being suboptimal in quality. Left Ventricle Hyperdynamic LV function. Ejection Fraction = 60%. Fused E and A waves precludes diastolic assessment . Right Ventricle The right ventricle is normal size. The right ventricular systolic function is normal. Atria Normal left and right atrial size and function. Mitral Valve The mitral valve is normal in structure and function. Tricuspid Valve The tricuspid valve is normal in structure and function. There is mild tricuspid regurgitation. Right ventricular systolic pressure is elevated at 39 mmhg. There is mild pulmonary hypertension. Normal RA pressure. Aortic Valve The aortic valve is normal in structure and function. Pulmonic Valve The pulmonic valve is not well visualized. Great Vessels The aortic root is normal size. Normal aortic arch, descending and ascending aorta. Pericardium/Pleura There is no pericardial effusion. There is no pleural effusion. Interpretation Summary Hyperdynamic LV function. There is mild pulmonary hypertension. The right ventricular systolic function is normal. Eduar Clark 08/31/2018 02:43 PM
[2018-08-31] MEDS ORDERED: ACETAMINOPHEN 325 MG TABLET (FP) PO ONE (16:52)
--- NOTE | 2018-08-31 17:34 | PN ---
Physical Exam: SUBJECTIVE: Patient seen and examined at bedside. C/o shortness of breath. No chest pain endorsed. OBJECTIVE: Vital Signs Period Temp Pulse Resp BP Sys/Quiroga Pulse Ox Last 24 Hr 97.7 F-100.3 F 96-114 18-20 142-162/79-101 96-100 GENERAL: AAOx3, NAD, Pleasant HEAD: NC/AT EYES: EOMI ENT: MMM membranes. NECK: Supple. LUNGS: Crackles Left Lung field HEART: Tachycardia Regular rhythm, No MRG appreciated ABDOMEN: SOFt NDNT EXTREMITIES: No CCE NEUROLOGICAL:No gross neuro def appreciated PSYCH: Normal mood, normal affect. SKIN: Warm, dry, normal turgor, no rashes or lesions noted Laboratory Results - last 24 hr 08/30/18 08/30/18 08/30/18 19:35 20:09 20:09 WBC 6.8 RBC 4.26 Hgb 13.6 Hct 38.0 MCV 89.1 MCH 31.8 MCHC 35.7 RDW 12.8 Plt Count 309 MPV 7.1 L Absolute Neuts (auto) 4.8 Neutrophils % 70.6 Lymphocytes % 17.3 Monocytes % 10.3 H Eosinophils % 1.4 Basophils % 0.4 Nucleated RBC % 0 ESR PT with INR INR PTT (Actin FS) D-Dimer 1498 H VBG pH POC VBG pCO2 POC VBG pO2 Mixed VBG HCO3 Sodium Potassium Chloride Carbon Dioxide Anion Gap BUN Creatinine Creat Clearance w eGFR Random Glucose Lactic Acid Calcium Phosphorus Magnesium Total Bilirubin AST ALT Alkaline Phosphatase LD Total Creatine Kinase Troponin I C-Reactive Protein Total Protein Albumin TSH Urine Color Urine Appearance Urine pH Ur Specific [place] Urine Protein Urine Glucose (UA) Urine Ketones Urine Blood Urine Nitrite Urine Bilirubin Urine Urobilinogen Ur Leukocyte Esterase Urine Osmolality Ur Random Sodium Influenza A (Rapid) Negative Influenza B (Rapid) Negative 08/30/18 08/30/18 08/30/18 20:09 20:09 20:09 WBC RBC Hgb Hct MCV MCH MCHC RDW Plt Count MPV Absolute Neuts (auto) Neutrophils % Lymphocytes % Monocytes % Eosinophils % Basophils % Nucleated RBC % ESR PT with INR INR PTT (Actin FS) D-Dimer VBG pH 7.45 H POC VBG pCO2 29.1 L POC VBG pO2 63.6 H Mixed VBG HCO3 20.1 Sodium 130 L Potassium 4.1 Chloride 97 L Carbon Dioxide 23 Anion Gap 10 BUN 9 Creatinine 0.9 Creat Clearance w eGFR > 60 Random Glucose 130 H Lactic Acid 0.9 Calcium 8.3 L Phosphorus Magnesium Total Bilirubin 0.5 AST 14 L ALT 17 Alkaline Phosphatase 62 LD Total Creatine Kinase 100 Troponin I < 0.02 C-Reactive Protein Total Protein 7.2 Albumin 3.4 TSH Urine Color Urine Appearance Urine pH Ur Specific [place] Urine Protein Urine Glucose (UA) Urine Ketones Urine Blood Urine Nitrite Urine Bilirubin Urine Urobilinogen Ur Leukocyte Esterase Urine Osmolality Ur Random Sodium Influenza A (Rapid) Influenza B (Rapid) 08/30/18 08/31/18 08/31/18 22:29 05:30 05:30 WBC RBC Hgb Hct MCV MCH MCHC RDW Plt Count MPV Absolute Neuts (auto) Neutrophils % Lymphocytes % Monocytes % Eosinophils % Basophils % Nucleated RBC % ESR 45 H PT with INR INR PTT (Actin FS) D-Dimer VBG pH POC VBG pCO2 POC VBG pO2 Mixed VBG HCO3 Sodium 133 L Potassium 4.3 Chloride 99 Carbon Dioxide 25 Anion Gap 9 BUN 10 Creatinine 0.8 Creat Clearance w eGFR > 60 Random Glucose 101 Lactic Acid Calcium 8.0 L Phosphorus 3.2 Magnesium 2.1 Total Bilirubin 0.4 AST 15 ALT 16 Alkaline Phosphatase 54 LD Total 168 Creatine Kinase Troponin I C-Reactive Protein 12.6 H Total Protein 6.4 Albumin 2.9 L TSH 1.16 Urine Color Straw Urine Appearance Clear Urine pH 6.0 Ur Specific [place] 1.027 Urine Protein Negative Urine Glucose (UA) Negative Urine Ketones Negative Urine Blood Negative Urine Nitrite Negative Urine Bilirubin Negative Urine Urobilinogen Negative Ur Leukocyte Esterase Negative Urine Osmolality Ur Random Sodium Influenza A (Rapid) Influenza B (Rapid) 08/31/18 08/31/18 08/31/18 05:30 05:30 09:45 WBC 6.9 RBC 4.05 Hgb 12.4 Hct 36.8 MCV 90.8 MCH 30.6 MCHC 33.6 RDW 12.8 Plt Count 277 MPV 6.9 L Absolute Neuts (auto) 5.1 Neutrophils % 73.9 Lymphocytes % 13.3 D Monocytes % 10.5 H Eosinophils % 1.9 Basophils % 0.4 Nucleated RBC % 0 ESR PT with INR 15.00 H INR 1.27 H PTT (Actin FS) 36.2 D-Dimer VBG pH POC VBG pCO2 POC VBG pO2 Mixed VBG HCO3 Sodium Potassium Chloride Carbon Dioxide Anion Gap BUN Creatinine Creat Clearance w eGFR Random Glucose Lactic Acid Calcium Phosphorus Magnesium Total Bilirubin AST ALT Alkaline Phosphatase LD Total Creatine Kinase Troponin I C-Reactive Protein Total Protein Albumin TSH Urine Color Urine Appearance Urine pH Ur Specific [place] Urine Protein Urine Glucose (UA) Urine Ketones Urine Blood Urine Nitrite Urine Bilirubin Urine Urobilinogen Ur Leukocyte Esterase Urine Osmolality 412 Ur Random Sodium Influenza A (Rapid) Influenza B (Rapid) 08/31/18 09:45 WBC RBC Hgb Hct MCV MCH MCHC RDW Plt Count MPV Absolute Neuts (auto) Neutrophils % Lymphocytes % Monocytes % Eosinophils % Basophils % Nucleated RBC % ESR PT with INR INR PTT (Actin FS) D-Dimer VBG pH POC VBG pCO2 POC VBG pO2 Mixed VBG HCO3 Sodium Potassium Chloride Carbon Dioxide Anion Gap BUN Creatinine Creat Clearance w eGFR Random Glucose Lactic Acid Calcium Phosphorus Magnesium Total Bilirubin AST ALT Alkaline Phosphatase LD Total Creatine Kinase Troponin I C-Reactive Protein Total Protein Albumin TSH Urine Color Urine Appearance Urine pH Ur Specific [place] Urine Protein Urine Glucose (UA) Urine Ketones Urine Blood Urine Nitrite Urine Bilirubin Urine Urobilinogen Ur Leukocyte Esterase Urine Osmolality Ur Random Sodium 109 Influenza A (Rapid) Influenza B (Rapid) Active Medications Generic Name Dose Route Start Last Admin Trade Name Freq PRN Reason Stop Dose Admin Enalapril Maleate 5 mg 09/01/18 10:00 Vasotec - PO BID SAMMY Lactated Ringer's 1,000 mls @ 50 mls/hr 08/30/18 23:15 08/31/18 00:35 Lactated Ringers Solution IV 50 mls/hr ASDIR SAMMY Administration Levofloxacin 500 mg in 100 mls @ 100 mls/hr 08/31/18 20:00 Levaquin 500 Mg Premixed Ivpb - IVPB DAILY SAMMY Protocol Clindamycin Phosphate 600 mg in 50 mls @ 100 mls/hr 08/31/18 02:00 08/31/18 10:10 Cleocin 600 Mg Premix Ivpb - IVPB 100 mls/hr Q8H-IV SAMMY Administration Protocol ASSESSMENT/PLAN: 63 y/o M w/ PMHx HTN p/w cough, SOB, malaise x 1 week, hemoptysis of large volume clots x 1 day, additionally experiencing dizziness and headaches and had 1 episode of seizure-like activity. Initial imaging studies demonstrate obstructive PNA 2/2 likely lung Ca. #Obstructive pneumonia 2/2 lung mass -Lexofloxacin/Clindamycin -LR @ 50 -Hyponatremia, headaches, dizziness, seizure-like episode were concerning for brain mets. Brain MRI- Negative for any intracranial masses or lesions -Pulmonology on board. Bronchoscopy this week for tissue biopsy and to assess mass . -Oncology consulted- Dr Piña/Dr Lizarraga. CT chest revealed 9x7cm spiculated mass encasing left main pulmonary artery, post-obstructive lingular consolidation, left pleural effusion, mediastinal lymphadenopathy, concerning for malignancy. Awaiting Broncho for tissue biopsy. #HTN - Enalapril increased to 5 mg po bid #FEN -LR @ 50 -monitor and replete lytes -regular diet #PPx -DVT: will hold in light of hemoptysis and possible bronchoscopy tomorrow -GI: not indicated #dispo - med/surg Visit type - Emergency Visit Emergency Visit: Yes ED Registration Date: 08/30/18 Care time: The patient presented to the Emergency Department on the above date and was hospitalized for further evaluation of their emergent condition. - New Patient This patient is new to me today: Yes Date on this admission: 08/31/18 - Critical Care Critical Care patient: No - Discharge Referral Referred to [facility] Med [facility] No
--- NOTE | 2018-08-31 17:36 | PN ---
Teaching Attending Note Name of Resident: Alberto Gillette ATTENDING PHYSICIAN STATEMENT I saw and evaluated the patient. I reviewed the resident's note and discussed the case with the resident. I agree with the resident's findings and plan as documented. SUBJECTIVE: Patient laying in bed, appears tachypnic and diaphoretic. He feels short of breath. He denies pain. OBJECTIVE: Vital Signs Period Temp Pulse Resp BP Sys/Quiroga Pulse Ox Last 24 Hr 97.7 F-100.3 F 96-114 18-20 142-162/79-101 96-100 HEART: S1S2, tachycardic LUNGS: Crackles half way up left lung ABDOMEN: Soft, non-tender, non-distended, normal BS EXTREMITIES: No edema Laboratory Results - last 24 hr 08/30/18 08/30/18 08/30/18 19:35 20:09 20:09 WBC 6.8 RBC 4.26 Hgb 13.6 Hct 38.0 MCV 89.1 MCH 31.8 MCHC 35.7 RDW 12.8 Plt Count 309 MPV 7.1 L Absolute Neuts (auto) 4.8 Neutrophils % 70.6 Lymphocytes % 17.3 Monocytes % 10.3 H Eosinophils % 1.4 Basophils % 0.4 Nucleated RBC % 0 ESR PT with INR INR PTT (Actin FS) D-Dimer 1498 H VBG pH POC VBG pCO2 POC VBG pO2 Mixed VBG HCO3 Sodium Potassium Chloride Carbon Dioxide Anion Gap BUN Creatinine Creat Clearance w eGFR Random Glucose Lactic Acid Calcium Phosphorus Magnesium Total Bilirubin AST ALT Alkaline Phosphatase LD Total Creatine Kinase Troponin I C-Reactive Protein Total Protein Albumin TSH Urine Color Urine Appearance Urine pH Ur Specific [place] Urine Protein Urine Glucose (UA) Urine Ketones Urine Blood Urine Nitrite Urine Bilirubin Urine Urobilinogen Ur Leukocyte Esterase Urine Osmolality Ur Random Sodium Influenza A (Rapid) Negative Influenza B (Rapid) Negative 08/30/18 08/30/18 08/30/18 20:09 20:09 20:09 WBC RBC Hgb Hct MCV MCH MCHC RDW Plt Count MPV Absolute Neuts (auto) Neutrophils % Lymphocytes % Monocytes % Eosinophils % Basophils % Nucleated RBC % ESR PT with INR INR PTT (Actin FS) D-Dimer VBG pH 7.45 H POC VBG pCO2 29.1 L POC VBG pO2 63.6 H Mixed VBG HCO3 20.1 Sodium 130 L Potassium 4.1 Chloride 97 L Carbon Dioxide 23 Anion Gap 10 BUN 9 Creatinine 0.9 Creat Clearance w eGFR > 60 Random Glucose 130 H Lactic Acid 0.9 Calcium 8.3 L Phosphorus Magnesium Total Bilirubin 0.5 AST 14 L ALT 17 Alkaline Phosphatase 62 LD Total Creatine Kinase 100 Troponin I < 0.02 C-Reactive Protein Total Protein 7.2 Albumin 3.4 TSH Urine Color Urine Appearance Urine pH Ur Specific [place] Urine Protein Urine Glucose (UA) Urine Ketones Urine Blood Urine Nitrite Urine Bilirubin Urine Urobilinogen Ur Leukocyte Esterase Urine Osmolality Ur Random Sodium Influenza A (Rapid) Influenza B (Rapid) 08/30/18 08/31/18 08/31/18 22:29 05:30 05:30 WBC RBC Hgb Hct MCV MCH MCHC RDW Plt Count MPV Absolute Neuts (auto) Neutrophils % Lymphocytes % Monocytes % Eosinophils % Basophils % Nucleated RBC % ESR 45 H PT with INR INR PTT (Actin FS) D-Dimer VBG pH POC VBG pCO2 POC VBG pO2 Mixed VBG HCO3 Sodium 133 L Potassium 4.3 Chloride 99 Carbon Dioxide 25 Anion Gap 9 BUN 10 Creatinine 0.8 Creat Clearance w eGFR > 60 Random Glucose 101 Lactic Acid Calcium 8.0 L Phosphorus 3.2 Magnesium 2.1 Total Bilirubin 0.4 AST 15 ALT 16 Alkaline Phosphatase 54 LD Total 168 Creatine Kinase Troponin I C-Reactive Protein 12.6 H Total Protein 6.4 Albumin 2.9 L TSH 1.16 Urine Color Straw Urine Appearance Clear Urine pH 6.0 Ur Specific [place] 1.027 Urine Protein Negative Urine Glucose (UA) Negative Urine Ketones Negative Urine Blood Negative Urine Nitrite Negative Urine Bilirubin Negative Urine Urobilinogen Negative Ur Leukocyte Esterase Negative Urine Osmolality Ur Random Sodium Influenza A (Rapid) Influenza B (Rapid) 08/31/18 08/31/18 08/31/18 05:30 05:30 09:45 WBC 6.9 RBC 4.05 Hgb 12.4 Hct 36.8 MCV 90.8 MCH 30.6 MCHC 33.6 RDW 12.8 Plt Count 277 MPV 6.9 L Absolute Neuts (auto) 5.1 Neutrophils % 73.9 Lymphocytes % 13.3 D Monocytes % 10.5 H Eosinophils % 1.9 Basophils % 0.4 Nucleated RBC % 0 ESR PT with INR 15.00 H INR 1.27 H PTT (Actin FS) 36.2 D-Dimer VBG pH POC VBG pCO2 POC VBG pO2 Mixed VBG HCO3 Sodium Potassium Chloride Carbon Dioxide Anion Gap BUN Creatinine Creat Clearance w eGFR Random Glucose Lactic Acid Calcium Phosphorus Magnesium Total Bilirubin AST ALT Alkaline Phosphatase LD Total Creatine Kinase Troponin I C-Reactive Protein Total Protein Albumin TSH Urine Color Urine Appearance Urine pH Ur Specific [place] Urine Protein Urine Glucose (UA) Urine Ketones Urine Blood Urine Nitrite Urine Bilirubin Urine Urobilinogen Ur Leukocyte Esterase Urine Osmolality 412 Ur Random Sodium Influenza A (Rapid) Influenza B (Rapid) 08/31/18 09:45 WBC RBC Hgb Hct MCV MCH MCHC RDW Plt Count MPV Absolute Neuts (auto) Neutrophils % Lymphocytes % Monocytes % Eosinophils % Basophils % Nucleated RBC % ESR PT with INR INR PTT (Actin FS) D-Dimer VBG pH POC VBG pCO2 POC VBG pO2 Mixed VBG HCO3 Sodium Potassium Chloride Carbon Dioxide Anion Gap BUN Creatinine Creat Clearance w eGFR Random Glucose Lactic Acid Calcium Phosphorus Magnesium Total Bilirubin AST ALT Alkaline Phosphatase LD Total Creatine Kinase Troponin I C-Reactive Protein Total Protein Albumin TSH Urine Color Urine Appearance Urine pH Ur Specific [place] Urine Protein Urine Glucose (UA) Urine Ketones Urine Blood Urine Nitrite Urine Bilirubin Urine Urobilinogen Ur Leukocyte Esterase Urine Osmolality Ur Random Sodium 109 Influenza A (Rapid) Influenza B (Rapid) Current Medications Generic Name Dose Route Start Last Admin Trade Name Freq PRN Reason Stop Dose Admin Enalapril Maleate 5 mg 09/01/18 10:00 Vasotec - PO BID SAMMY Lactated Ringer's 1,000 mls @ 50 mls/hr 08/30/18 23:15 08/31/18 00:35 Lactated Ringers Solution IV 50 mls/hr ASDIR SAMMY Administration Levofloxacin 500 mg in 100 mls @ 100 mls/hr 08/31/18 20:00 Levaquin 500 Mg Premixed Ivpb - IVPB DAILY SAMMY Protocol Clindamycin Phosphate 600 mg in 50 mls @ 100 mls/hr 08/31/18 02:00 08/31/18 10:10 Cleocin 600 Mg Premix Ivpb - IVPB 100 mls/hr Q8H-IV SAMMY Administration Protocol ASSESSMENT AND PLAN: This is a 63 year old man with a history of HTN who presented to the ED with a cough, SOB, malaise, dizziness, headache, and hemoptysis. 1. Sepsis (temp 101.8, tachycardia) secondary to post-obstructive pneumonia - Continue Levaquin, Clindamycin - Sputum, blood cultures pending - Tylenol as needed for fever - Start DuoNeb 2. Left lung mass - Likely malignancy - Sputum cytology - Plan for flex bronchoscopy - MRI of brain negative for metastatic disease - Echo shows mild pulm HTN 3. HTN - Increase Vasotec 4. Hyponatremia - Likely SIADH secondary to lung mass - Improving - Monitor electrolytes
[2018-08-31] MEDS: ALBUTEROL SO4 2.5/IPRATROPIUM 0.5 INH SOL 3 ML VIAL.NEB. NEB SCH ×2 (19:43→20:00)
--- NOTE | 2018-08-31 20:01 | PN ---
Teaching Attending Note Name of Resident: Carmen Lizarraga ATTENDING PHYSICIAN STATEMENT I saw and evaluated the patient. I reviewed the resident's note and discussed the case with the resident. I agree with the resident's findings and plan as documented. SUBJECTIVE: Patient seen and examined 50 pack year smoking history with large 9 x 7 cm left upper lobe mass encasing pulmonary artery and invading mediastinum . No industrial exposues or intoxicants . Has post obstructive pneumonia and effusion Last Vital Signs Temp Pulse Resp BP Pulse Ox 101.8 F H 107 H 18 181/98 H 98 08/31/18 18:22 08/31/18 18:22 08/31/18 14:47 08/31/18 18:22 08/31/18 09:00 HEENT: SONIA, EOM Intact Oropharynx: No thrush, No mucositis Cor: RSR, No murmurs, No gallops Lungs: diminished breath sounds left lung posteriorlyl Abd: Soft, Normal bowel sounds, No organomegaly Ext:No significant edema Skin: No rashes, Integument intact CBC, BMP 08/31/18 05:30 08/31/18 05:30 Current Medications Generic Name Dose Route Start Last Admin Trade Name Freq PRN Reason Stop Dose Admin Albuterol Sulfate 1 amp 08/31/18 17:35 Ventolin 0.083% Nebulizer Soln - NEB Q4H PRN SHORT OF BREATH/WHEEZING Albuterol/Ipratropium 1 amp 08/31/18 17:45 08/31/18 19:43 Duoneb - NEB 1 amp RQID SAMMY Administration Enalapril Maleate 5 mg 09/01/18 10:00 Vasotec - PO BID SAMMY Lactated Ringer's 1,000 mls @ 50 mls/hr 08/30/18 23:15 08/31/18 00:35 Lactated Ringers Solution IV 50 mls/hr ASDIR SAMMY Administration Levofloxacin 500 mg in 100 mls @ 100 mls/hr 08/31/18 20:00 Levaquin 500 Mg Premixed Ivpb - IVPB DAILY SAMMY Protocol Clindamycin Phosphate 600 mg in 50 mls @ 100 mls/hr 08/31/18 02:00 08/31/18 17:53 Cleocin 600 Mg Premix Ivpb - IVPB 100 mls/hr Q8H-IV SAMMY Administration Protocol OBJECTIVE: ASSESSMENT AND PLAN: Impression 9 x 7 cm ZENY lung mass with mediastinal involvement and post obstructive pneumonia. Will need tissue and further staging for presumed malignancy. Continuing on antibiotics per ID.
[2018-09-01] MEDS: CLINDAMYCIN 600MG PREMIX IVPB 600 MG/50 ML BAG IVPB SCH ×3 (01:21→17:20)
[2018-09-01] MEDS: ALBUTEROL SO4 0.083% IH SOL 2.5 MG/3 ML VIAL.NEB. NEB PRN (02:15)
[2018-09-01 07:34] LABS: HEMATOCRIT 34.4 % (35.4-49); HEMOGLOBIN 11.6 GM/dL (11.7-16.9); MCH 30.3 pg (25.7-33.7); MCHC 33.6 g/dl (32.0-35.9); MEAN CELL VOLUME 90.2 fl (80-96); MEAN PLT VOLUME 6.7 fl (7.5-11.1); PLATELET COUNT 294 K/MM3 (134-434); RBC 3.82 M/mm3 (4.00-5.60); RDW 12.7 % (11.9-15.9); WHITE BLOOD COUNT 5.7 K/mm3 (4.0-10.0)
[2018-09-01] MEDS: ALBUTEROL SO4 2.5/IPRATROPIUM 0.5 INH SOL 3 ML VIAL.NEB. NEB SCH ×4 (07:58→20:28)
[2018-09-01 08:04] LABS: ANION GAP 7 MMOL/L (8-16); BLOOD UREA NITROGEN 7 mg/dL (7-18); CHLORIDE 93 mmol/L (98-107); CO2 26 mmol/L (21-32); CREATININE 0.9 mg/dL (0.55-1.3); GLUCOSE,RANDOM 141 mg/dL (74-106); MAGNESIUM 1.8 mg/dL (1.8-2.4); PHOSPHOROUS 3.7 mg/dL (2.5-4.9); POTASSIUM 4.9 mmol/L (3.5-5.1); SODIUM 127 mmol/L (136-145)
[2018-09-01 08:07] LABS: CHOLESTEROL 101 mg/dL (50-200); HDL CHOLESTEROL 39 mg/dL (40-60); TRIGLYCERIDES 46 mg/dL (0-150)
[2018-09-01] MEDS: ACETAMINOPHEN 500 MG TABLET (FP) PO PRN ×2 (08:51→17:21)
[2018-09-01] MEDS: ENALAPRIL MALEATE 5 MG TABLET (FP) PO SCH ×2 (09:11→21:34)
--- NOTE | 2018-09-01 10:28 | PN ---
Progress Note, Physician History of Present Illness: PULMONARY ALERT,NO DISTRESS,-SOB,LESS HEMOPTYSIS - Current Medication List Current Medications: Active Medications Acetaminophen (Tylenol -) 500 mg PO Q4H PRN PRN Reason: PAIN Last Admin: 09/01/18 08:51 Dose: 500 mg Albuterol Sulfate (Ventolin 0.083% Nebulizer Soln -) 1 amp NEB Q4H PRN PRN Reason: SHORT OF BREATH/WHEEZING Last Admin: 09/01/18 02:15 Dose: 1 amp Albuterol/Ipratropium (Duoneb -) 1 amp NEB RQID SAMMY Last Admin: 09/01/18 07:58 Dose: 1 amp Enalapril Maleate (Vasotec -) 5 mg PO BID SAMMY Last Admin: 09/01/18 09:11 Dose: 5 mg Lactated Ringer's (Lactated Ringers Solution) 1,000 mls @ 50 mls/hr IV ASDIR SAMMY Last Admin: 08/31/18 00:35 Dose: 50 mls/hr Levofloxacin (Levaquin 500 Mg Premixed Ivpb -) 500 mg in 100 mls @ 100 mls/hr IVPB DAILY SAMMY; Protocol Last Admin: 09/01/18 09:11 Dose: 100 mls/hr Clindamycin Phosphate (Cleocin 600 Mg Premix Ivpb -) 600 mg in 50 mls @ 100 mls /hr IVPB Q8H-IV SAMMY; Protocol Last Admin: 09/01/18 09:11 Dose: 100 mls/hr - Objective Vital Signs: Vital Signs Temperature 99.6 F 09/01/18 06:00 Pulse Rate 90 09/01/18 06:00 Respiratory Rate 18 09/01/18 06:00 Blood Pressure 148/90 09/01/18 06:00 O2 Sat by Pulse Oximetry (%) 100 08/31/18 21:00 Constitutional: Yes: Well Nourished, Calm Eyes: Yes: WNL HENT: Yes: WNL Neck: Yes: WNL Cardiovascular: Yes: Regular Rate and Rhythm, S1, S2 Respiratory: Yes: Rhonchi (FEW RHONCHI) Gastrointestinal: Yes: Normal Bowel Sounds, Soft Extremities: Yes: WNL Edema: No Labs: CBC, BMP 09/01/18 05:30 09/01/18 05:30 INR, PTT INR 1.27 (0.83-1.09) H 08/31/18 05:30 Problem List - Problems (1) Hyponatremia Code(s): E87.1 - HYPO-OSMOLALITY AND HYPONATREMIA (2) Mass of lung Code(s): R91.8 - OTHER NONSPECIFIC ABNORMAL FINDING OF LUNG FIELD (3) Pneumonia Code(s): J18.9 - PNEUMONIA, UNSPECIFIED ORGANISM Qualifiers: Pneumonia type: due to unspecified organism Laterality: left Lung location: upper lobe of lung Qualified Code(s): J18.1 - Lobar pneumonia, unspecified organism (4) HTN (hypertension) Code(s): I10 - ESSENTIAL (PRIMARY) HYPERTENSION (5) Hemoptysis Code(s): R04.2 - HEMOPTYSIS Assessment/Plan IMP LEFT CENTRAL LUNG MASS C/W LUNG CA LIKELY SMALL CELL OR SQUAMOUS CELL POST OBSTRUCTIVE PNEUMONIA HEMOPTYSIS HYPONATREMIA ? SIADH HTN PLAN ABX FLEX BRONCHOSCOPY WITH BX ON Thursday09/02/18 MONITOR ERUM ARORA Problem List - Problems (1) Hyponatremia Code(s): E87.1 - HYPO-OSMOLALITY AND HYPONATREMIA (2) Mass of lung Code(s): R91.8 - OTHER NONSPECIFIC ABNORMAL FINDING OF LUNG FIELD (3) Pneumonia Code(s): J18.9 - PNEUMONIA, UNSPECIFIED ORGANISM Qualifiers: Pneumonia type: due to unspecified organism Laterality: left Lung location: upper lobe of lung Qualified Code(s): J18.1 - Lobar pneumonia, unspecified organism (4) HTN (hypertension) Code(s): I10 - ESSENTIAL (PRIMARY) HYPERTENSION (5) Hemoptysis Code(s): R04.2 - HEMOPTYSIS
[2018-09-01 11:30] LABS: OSMOLALITY,SERUM 266 mosm/kg (278-305)
[2018-09-01 11:33] LABS: INR 1.27 (0.83-1.09)
--- NOTE | 2018-09-01 11:53 | PN ---
Physical Exam: SUBJECTIVE: Patient seen and examined at bedside. 101.8 fever yesterday evening. BP also elevated. No complaints this am. Plan for Bronch in am. OBJECTIVE: Vital Signs Period Temp Pulse Resp BP Sys/Quiroga Pulse Ox Last 24 Hr 99.0 F-101.8 F 90-107 18-18 129-181/79-98 100 GENERAL: NAD Breathing better HEAD: NC/AT EYES: EOMI ENT: MMM membranes. NECK: Supple. LUNGS: Dec BS left lung field HEART: Tachycardia Regular rhythm, No MRG appreciated ABDOMEN: NDNT No HSM EXTREMITIES: No CCE NEUROLOGICAL:No gross neuro def appreciated PSYCH: Normal mood, normal affect. SKIN: Warm, dry, normal turgor, no rashes or lesions noted Laboratory Results - last 24 hr 08/31/18 09/01/18 09/01/18 09:45 05:30 05:30 WBC RBC Hgb Hct MCV MCH MCHC RDW Plt Count MPV PT with INR INR Sodium Potassium Chloride Carbon Dioxide Anion Gap BUN Creatinine Creat Clearance w eGFR Random Glucose Hemoglobin A1c % 5.8 Serum Osmolality 266 L Calcium Phosphorus Magnesium Triglycerides 46 Cholesterol 101 Total LDL Cholesterol 53 HDL Cholesterol 39 L Urine Osmolality 412 09/01/18 09/01/18 09/01/18 05:30 05:30 10:49 WBC 5.7 RBC 3.82 L Hgb 11.6 L Hct 34.4 L MCV 90.2 MCH 30.3 MCHC 33.6 RDW 12.7 Plt Count 294 MPV 6.7 L PT with INR 15.00 H INR 1.27 H Sodium 127 L Potassium 4.9 Chloride 93 L Carbon Dioxide 26 Anion Gap 7 L BUN 7 Creatinine 0.9 Creat Clearance w eGFR > 60 Random Glucose 141 H Hemoglobin A1c % Serum Osmolality Calcium 8.0 L Phosphorus 3.7 Magnesium 1.8 Triglycerides Cholesterol Total LDL Cholesterol HDL Cholesterol Urine Osmolality Active Medications Generic Name Dose Route Start Last Admin Trade Name Freq PRN Reason Stop Dose Admin Acetaminophen 500 mg 09/01/18 08:14 09/01/18 08:51 Tylenol - PO 500 mg Q4H PRN Administration PAIN Albuterol Sulfate 1 amp 08/31/18 17:35 09/01/18 02:15 Ventolin 0.083% Nebulizer Soln - NEB 1 amp Q4H PRN Administration SHORT OF BREATH/WHEEZING Albuterol/Ipratropium 1 amp 08/31/18 17:45 09/01/18 11:23 Duoneb - NEB 1 amp RQID SAMMY Administration Enalapril Maleate 5 mg 09/01/18 10:00 09/01/18 09:11 Vasotec - PO 5 mg BID SAMMY Administration Lactated Ringer's 1,000 mls @ 50 mls/hr 08/30/18 23:15 08/31/18 00:35 Lactated Ringers Solution IV 50 mls/hr ASDIR SAMMY Administration Levofloxacin 500 mg in 100 mls @ 100 mls/hr 08/31/18 20:00 09/01/18 09:11 Levaquin 500 Mg Premixed Ivpb - IVPB 100 mls/hr DAILY SAMMY Administration Protocol Clindamycin Phosphate 600 mg in 50 mls @ 100 mls/hr 08/31/18 02:00 09/01/18 09:11 Cleocin 600 Mg Premix Ivpb - IVPB 100 mls/hr Q8H-IV SAMMY Administration Protocol ASSESSMENT/PLAN: 63 y/o M w/ PMHx HTN p/w cough, SOB, malaise x 1 week, hemoptysis of large volume clots x 1 day, additionally experiencing dizziness and headaches and had 1 episode of seizure-like activity. Initial imaging studies demonstrate obstructive PNA 2/2 likely lung Ca. 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 Brain MRI- Negative for any intracranial masses or lesions -Pulmonology on board. Bronchoscopy this week for tissue biopsy and to assess mass . -Oncology consulted- Dr Piña/Dr Lizarraga. CT chest revealed 9x7cm spiculated mass encasing left main pulmonary artery, post-obstructive lingular consolidation, left pleural effusion, mediastinal lymphadenopathy, concerning for malignancy. Awaiting Broncho for tissue biopsy. #HTN - Enalapril 5 mg po bid #FEN -No Fluids -monitor and replete lytes -regular diet #PPx -DVT: will hold in light of hemoptysis and bronchoscopy tomorrow 09/02/18 -GI: not indicated #dispo - tele Visit type - Emergency Visit Emergency Visit: Yes ED Registration Date: 08/30/18 Care time: The patient presented to the Emergency Department on the above date and was hospitalized for further evaluation of their emergent condition. - New Patient This patient is new to me today: No - Critical Care Critical Care patient: No - Discharge Referral Referred to [facility] Med P.C.: No
--- NOTE | 2018-09-01 12:43 | CONSULT ---
Consult Consult Specialty:: Nephrology Reason for Consultation:: hyponatremia - History of Present Illness Chief Complaint: presented with URI History of Present Illness: Pt is a 63 year old male with pmhx of HTN and smoking who presents to the ER with cough. He was found to have a lung mass. I was called to evaluate him for hyponatremia. He drinks about 4 liters of water per day. His sodium has been worsening. He is also on LR. He denies dysuria or hematuria. He was not on diuretic. He says he tries to control his salt intake. He is on enalepril for his HTN. He denies lower ext edema. He denies shortness of breath with ambulation. He is getting a workup for a lung lass. - History Source History Provided By: Patient, Medical Record - Past Medical History Cardio/Vascular: Yes: HTN - Alcohol/Substance Use Hx Alcohol Use: Yes (socially) - Smoking History Smoking history: Former smoker Have you smoked in the past 12 months: No Home Medications - Allergies Allergies/Adverse Reactions: Allergies Allergy/AdvReac Type Severity Reaction Status Date / Time No Known Allergies Allergy Verified 08/30/18 19:38 - Home Medications Home Medications: Ambulatory Orders Enalapril Maleate [Vasotec] 5 mg PO DAILY 08/30/18 Family Disease History - Family Disease History Family History: Denies Review of Systems - Review of Systems Constitutional: reports: No Symptoms Eyes: reports: No Symptoms HENT: reports: No Symptoms Neck: reports: No Symptoms Cardiovascular: reports: No Symptoms Respiratory: reports: Cough, Hemoptysis Gastrointestinal: reports: No Symptoms Genitourinary: reports: No Symptoms Musculoskeletal: reports: No Symptoms Integumentary: reports: No Symptoms Neurological: reports: No Symptoms Endocrine: reports: No Symptoms Hematology/Lymphatic: reports: No Symptoms Psychiatric: reports: No Symptoms Physical Exam Vital Signs: Vital Signs Temperature 98.8 F 09/01/18 10:00 Pulse Rate 102 H 09/01/18 10:00 Respiratory Rate 18 09/01/18 10:00 Blood Pressure 153/92 09/01/18 10:00 O2 Sat by Pulse Oximetry (%) 99 09/01/18 09:00 Constitutional: Yes: Calm Eyes: Yes: Conjunctiva Clear HENT: Yes: Atraumatic Neck: Yes: Supple Cardiovascular: Yes: S1, S2 Respiratory: Yes: CTA Bilaterally Gastrointestinal: Yes: Normal Bowel Sounds, Soft Renal/: Yes: WNL Breast(s): Yes: WNL Musculoskeletal: Yes: WNL Edema: No Neurological: Yes: Oriented Psychiatric: Yes: Oriented Labs: CBC, BMP 09/01/18 05:30 09/01/18 05:30 Laboratory Tests 08/30/18 08/30/18 08/31/18 19:35 20:09 05:30 Hgb Sodium 130 L 133 L Creatinine 0.8 Serum Osmolality Urine Osmolality Ur Random Sodium Influenza A (Rapid) Negative Influenza B (Rapid) Negative 08/31/18 08/31/18 08/31/18 05:30 09:45 09:45 Hgb 12.4 Sodium Creatinine Serum Osmolality Urine Osmolality 412 Ur Random Sodium 109 Influenza A (Rapid) Influenza B (Rapid) 09/01/18 09/01/18 09/01/18 05:30 05:30 05:30 Hgb 11.6 L Sodium 127 L Creatinine 0.9 Serum Osmolality 266 L Urine Osmolality Ur Random Sodium Influenza A (Rapid) Influenza B (Rapid) Imaging - Results Chest X-ray: Report Reviewed Cat Scan: Report Reviewed Problem List - Problems (1) HTN (hypertension) Code(s): I10 - ESSENTIAL (PRIMARY) HYPERTENSION (2) Hemoptysis Code(s): R04.2 - HEMOPTYSIS (3) Hyponatremia Code(s): E87.1 - HYPO-OSMOLALITY AND HYPONATREMIA (4) Mass of lung Code(s): R91.8 - OTHER NONSPECIFIC ABNORMAL FINDING OF LUNG FIELD (5) Pneumonia Code(s): J18.9 - PNEUMONIA, UNSPECIFIED ORGANISM Qualifiers: Pneumonia type: due to unspecified organism Laterality: left Lung location: upper lobe of lung Qualified Code(s): J18.1 - Lobar pneumonia, unspecified organism Assessment/Plan Current Medications Generic Name Dose Route Start Last Admin Trade Name Freq PRN Reason Stop Dose Admin Acetaminophen 500 mg 09/01/18 08:14 09/01/18 08:51 Tylenol - PO 500 mg Q4H PRN Administration PAIN Albuterol Sulfate 1 amp 08/31/18 17:35 09/01/18 02:15 Ventolin 0.083% Nebulizer Soln - NEB 1 amp Q4H PRN Administration SHORT OF BREATH/WHEEZING Albuterol/Ipratropium 1 amp 08/31/18 17:45 09/01/18 11:23 Duoneb - NEB 1 amp RQID SAMMY Administration Enalapril Maleate 5 mg 09/01/18 10:00 09/01/18 09:11 Vasotec - PO 5 mg BID SAMMY Administration Lactated Ringer's 1,000 mls @ 50 mls/hr 08/30/18 23:15 08/31/18 00:35 Lactated Ringers Solution IV 50 mls/hr ASDIR SAMMY Administration Levofloxacin 500 mg in 100 mls @ 100 mls/hr 08/31/18 20:00 09/01/18 09:11 Levaquin 500 Mg Premixed Ivpb - IVPB 100 mls/hr DAILY SAMMY Administration Protocol Clindamycin Phosphate 600 mg in 50 mls @ 100 mls/hr 08/31/18 02:00 09/01/18 09:11 Cleocin 600 Mg Premix Ivpb - IVPB 100 mls/hr Q8H-IV SAMMY Administration Protocol Impression 1. hyponatremia 2. PNA 3. lung mass 4. HTN Plan - d/c LR as it is hypotonic - restrict free water to 1.2 liters - findings are consistent with siadh, elevated urine osm and sodium with a worsening of hyponatremia with fluids - can be liberal with salt intake - monitor sodium - pulmonary follow up for mass - oncology eval for mass - will follow Dr George
--- NOTE | 2018-09-01 13:59 | PN ---
Progress Note (short form) - Note Progress Note: PROGRESS NOTE FOR HEMATOLOGY/ONCOLOGY Patient seen and examined by me at bedside Overnight patient has Fever >101.0 F Patient offers no complaints Otherwise, denies any fever, chills, nausea, vomiting, abdominal pain, chest pain Vital Signs Temperature 98.8 F 09/01/18 10:00 Pulse Rate 102 H 09/01/18 10:00 Respiratory Rate 18 09/01/18 10:00 Blood Pressure 153/92 09/01/18 10:00 O2 Sat by Pulse Oximetry (%) 99 09/01/18 09:00 GENERAL: Awake, alert, and fully oriented, in no acute distress. EYES: Pupils equal, round and reactive to light, conjunctiva clear. ENT: Oropharynx clear without exudates. Moist mucous membranes. LUNGS: Rales heard at the left bases with no accessory muscle use. HEART: Tachycardic with regular rhythm, normal S1 and S2 ABDOMEN: Soft, nontender, not distended, normoactive bowel sounds EXTREMITIES: No calf tenderness. No peripheral edema. NEUROLOGICAL: Cranial nerves II-XII intact. Normal speech. CBC, BMP 09/01/18 05:30 08/31/18 08/31/18 09/01/18 09:45 09:45 05:30 Serum Osmolality 266 L Urine Osmolality 412 Ur Random Sodium 109 ASSESSMENT/PLAN: Patient is a 63 year old male who presented for shortness of breath associated with hemoptysis. CT done which revealed a spiculated lung mass with mediastinal lymphadenopathy and Pneumonia, concerning for malignancy. We were consulted for further evaluation. Problem List: Hemoptysis Shortness of breath Mediastinal lymphadenopathy Pneumonia Lung Mass Headaches HTN PLAN: -High suspicion for malignancy due to patient's CT findings, clinical picture, and history of smoking. In presence of low serum osm, clinical picture compatible with SIADH, which suggests central lesion and suggestive of small cell. Recommend CT of A/P and/or bone scan -Bronchoscopy/biopsy for diagnostic purposes planned for tomorrow 09/02/18 -Brain MRI negative -Will need to rule out TB and PE as they are some causes of hemoptysis -Continue abx for PNA, as per ID
--- NOTE | 2018-09-01 14:03 | PN ---
Teaching Attending Note Name of Resident: Carmen Lizarraga ATTENDING PHYSICIAN STATEMENT I saw and evaluated the patient. I reviewed the resident's note and discussed the case with the resident. I agree with the resident's findings and plan as documented. SUBJECTIVE: Patient seen and examined Continues with fevers, cough, sputum, hemoptysis. Low Na+ with serum and urine osm studies suggest SIADH which would compatible moswt likely with small cell ca. Last Vital Signs Temp Pulse Resp BP Pulse Ox 98.8 F 102 H 18 153/92 99 09/01/18 10:00 09/01/18 10:00 09/01/18 10:00 09/01/18 10:00 09/01/18 09:00 Cor: RSR, No murmurs, No gallops Lungs: Clear to P&A Abd: Soft, Normal bowel sounds, No organomegaly Ext:No significant edema CBC, BMP 09/01/18 05:30 09/01/18 05:30 Current Medications Generic Name Dose Route Start Last Admin Trade Name Freq PRN Reason Stop Dose Admin Acetaminophen 500 mg 09/01/18 08:14 09/01/18 08:51 Tylenol - PO 500 mg Q4H PRN Administration PAIN Albuterol Sulfate 1 amp 08/31/18 17:35 09/01/18 02:15 Ventolin 0.083% Nebulizer Soln - NEB 1 amp Q4H PRN Administration SHORT OF BREATH/WHEEZING Albuterol/Ipratropium 1 amp 08/31/18 17:45 09/01/18 11:23 Duoneb - NEB 1 amp RQID ASMMY Administration Enalapril Maleate 5 mg 09/01/18 10:00 09/01/18 09:11 Vasotec - PO 5 mg BID SAMMY Administration Levofloxacin 500 mg in 100 mls @ 100 mls/hr 08/31/18 20:00 09/01/18 09:11 Levaquin 500 Mg Premixed Ivpb - IVPB 100 mls/hr DAILY SAMMY Administration Protocol Clindamycin Phosphate 600 mg in 50 mls @ 100 mls/hr 08/31/18 02:00 09/01/18 09:11 Cleocin 600 Mg Premix Ivpb - IVPB 100 mls/hr Q8H-IV SAMMY Administration Protocol OBJECTIVE:Impression: Lung Mass - for bronchoscopy Hyponatremia- compatible with SIADH Fevers- post obstructive pneumonia Antibiotics Fluid restrict Bronchoscopy ASSESSMENT AND PLAN:
--- NOTE | 2018-09-01 17:43 | PN ---
Teaching Attending Note Name of Resident: Alberto Gillette ATTENDING PHYSICIAN STATEMENT I saw and evaluated the patient. I reviewed the resident's note and discussed the case with the resident. I agree with the resident's findings and plan as documented. SUBJECTIVE: Patient feels better today. Coughing up less blood. He is afebrile today. He denies chest pain, SOB. OBJECTIVE: Vital Signs Period Temp Pulse Resp BP Sys/Quiroga Pulse Ox Last 24 Hr 98.6 F-101.8 F 90-107 18-18 129-181/78-98 99-100 HEART: S1S2, RRR LUNGS: Crackles half way up left lung ABDOMEN: Soft, non-tender, non-distended, normal BS EXTREMITIES: No edema Laboratory Results - last 24 hr 09/01/18 09/01/18 09/01/18 05:30 05:30 05:30 WBC 5.7 RBC 3.82 L Hgb 11.6 L Hct 34.4 L MCV 90.2 MCH 30.3 MCHC 33.6 RDW 12.7 Plt Count 294 MPV 6.7 L PT with INR INR Sodium Potassium Chloride Carbon Dioxide Anion Gap BUN Creatinine Creat Clearance w eGFR Random Glucose Hemoglobin A1c % 5.8 Serum Osmolality 266 L Calcium Phosphorus Magnesium Triglycerides 46 Cholesterol 101 Total LDL Cholesterol 53 HDL Cholesterol 39 L 09/01/18 09/01/18 05:30 10:49 WBC RBC Hgb Hct MCV MCH MCHC RDW Plt Count MPV PT with INR 15.00 H INR 1.27 H Sodium 127 L Potassium 4.9 Chloride 93 L Carbon Dioxide 26 Anion Gap 7 L BUN 7 Creatinine 0.9 Creat Clearance w eGFR > 60 Random Glucose 141 H Hemoglobin A1c % Serum Osmolality Calcium 8.0 L Phosphorus 3.7 Magnesium 1.8 Triglycerides Cholesterol Total LDL Cholesterol HDL Cholesterol Current Medications Generic Name Dose Route Start Last Admin Trade Name Freq PRN Reason Stop Dose Admin Acetaminophen 500 mg 09/01/18 08:14 09/01/18 17:21 Tylenol - PO 500 mg Q4H PRN Administration PAIN Albuterol Sulfate 1 amp 08/31/18 17:35 09/01/18 02:15 Ventolin 0.083% Nebulizer Soln - NEB 1 amp Q4H PRN Administration SHORT OF BREATH/WHEEZING Albuterol/Ipratropium 1 amp 08/31/18 17:45 09/01/18 16:10 Duoneb - NEB 1 amp RQID SAMMY Administration Enalapril Maleate 5 mg 09/01/18 10:00 09/01/18 09:11 Vasotec - PO 5 mg BID SAMMY Administration Levofloxacin 500 mg in 100 mls @ 100 mls/hr 08/31/18 20:00 09/01/18 09:11 Levaquin 500 Mg Premixed Ivpb - IVPB 100 mls/hr DAILY SAMMY Administration Protocol Clindamycin Phosphate 600 mg in 50 mls @ 100 mls/hr 08/31/18 02:00 09/01/18 17:20 Cleocin 600 Mg Premix Ivpb - IVPB 100 mls/hr Q8H-IV SAMMY Administration Protocol ASSESSMENT AND PLAN: This is a 63 year old man with a history of HTN who presented to the ED with a cough, SOB, malaise, dizziness, headache, and hemoptysis. 1. Sepsis secondary to post-obstructive pneumonia - Afebrile, WBC normal, tachycardia improving - Continue Levaquin, Clindamycin - Sputum culture growing normal bladimir - Blood cultures negative after 24 hours - Tylenol as needed for fever - Start DuoNeb 2. Left lung mass - Likely malignancy - Plan for flex bronchoscopy tomorrow - MRI of brain negative for metastatic disease - Echo shows mild pulm HTN 3. HTN - Continue Vasotec 4. Hyponatremia secondary to SIADH from lung mass - Sodium worse today with IV fluid - Discontinue IV fluid - Fluid restriction - Monitor electrolytes
[2018-09-02] MEDS: CLINDAMYCIN 600MG PREMIX IVPB 600 MG/50 ML BAG IVPB SCH ×2 (01:24→09:09)
[2018-09-02] MEDS: ALBUTEROL SO4 0.083% IH SOL 2.5 MG/3 ML VIAL.NEB. NEB PRN (03:39)
[2018-09-02 06:58] LABS: HEMATOCRIT 33.8 % (35.4-49); HEMOGLOBIN 12.2 GM/dL (11.7-16.9); MCH 32.3 pg (25.7-33.7); MCHC 36.2 g/dl (32.0-35.9); MEAN CELL VOLUME 89.2 fl (80-96); MEAN PLT VOLUME 6.6 fl (7.5-11.1); PLATELET COUNT 330 K/MM3 (134-434); RBC 3.79 M/mm3 (4.00-5.60); RDW 12.8 % (11.9-15.9); WHITE BLOOD COUNT 5.5 K/mm3 (4.0-10.0)
[2018-09-02] MEDS: ALBUTEROL SO4 2.5/IPRATROPIUM 0.5 INH SOL 3 ML VIAL.NEB. NEB SCH ×2 (07:40→11:32)
[2018-09-02 07:56] LABS: ANION GAP 11 MMOL/L (8-16); BLOOD UREA NITROGEN 7 mg/dL (7-18); CALCIUM 8.4 mg/dL (8.5-10.1); CHLORIDE 92 mmol/L (98-107); CO2 24 mmol/L (21-32); CREATININE 0.9 mg/dL (0.55-1.3); GLUCOSE,RANDOM 112 mg/dL (74-106); MAGNESIUM 2.1 mg/dL (1.8-2.4); PHOSPHOROUS 3.9 mg/dL (2.5-4.9); POTASSIUM 4.5 mmol/L (3.5-5.1); SODIUM 126 mmol/L (136-145)
[2018-09-02 09:01] VITALS: BP 153/92; PULSE 102; TEMP 98.8
[2018-09-02] MEDS: ACETAMINOPHEN 500 MG TABLET (FP) PO PRN (09:09)
[2018-09-02] MEDS: ENALAPRIL MALEATE 5 MG TABLET (FP) PO SCH (09:09)
--- NOTE | 2018-09-02 11:25 | PN ---
Progress Note, Physician History of Present Illness: pulmonary alert,no distress bronchoscopy cancelled secondary to hyponatremia na 126 - Current Medication List Current Medications: Active Medications Acetaminophen (Tylenol -) 500 mg PO Q4H PRN PRN Reason: PAIN Last Admin: 09/02/18 09:09 Dose: 500 mg Albuterol Sulfate (Ventolin 0.083% Nebulizer Soln -) 1 amp NEB Q4H PRN PRN Reason: SHORT OF BREATH/WHEEZING Last Admin: 09/02/18 03:39 Dose: 1 amp Albuterol/Ipratropium (Duoneb -) 1 amp NEB RQID SAMMY Last Admin: 09/02/18 07:40 Dose: 1 amp Enalapril Maleate (Vasotec -) 5 mg PO BID SAMMY Last Admin: 09/02/18 09:09 Dose: 5 mg Levofloxacin (Levaquin 500 Mg Premixed Ivpb -) 500 mg in 100 mls @ 100 mls/hr IVPB DAILY SAMMY; Protocol Last Admin: 09/02/18 09:08 Dose: 100 mls/hr Clindamycin Phosphate (Cleocin 600 Mg Premix Ivpb -) 600 mg in 50 mls @ 100 mls /hr IVPB Q8H-IV SAMMY; Protocol Last Admin: 09/02/18 09:09 Dose: 100 mls/hr - Objective Vital Signs: Vital Signs Temperature 98.8 F 09/02/18 09:01 Pulse Rate 102 H 09/02/18 09:01 Respiratory Rate 18 09/02/18 09:01 Blood Pressure 153/92 09/02/18 09:01 O2 Sat by Pulse Oximetry (%) 100 09/02/18 09:00 Constitutional: Yes: Well Nourished, Calm Eyes: Yes: WNL HENT: Yes: WNL Neck: Yes: WNL Cardiovascular: Yes: Regular Rate and Rhythm, S1, S2 Respiratory: Yes: Diminished Gastrointestinal: Yes: Normal Bowel Sounds, Soft Extremities: Yes: WNL Edema: No Labs: CBC, BMP 09/02/18 05:30 09/02/18 05:30 INR, PTT INR 1.27 (0.83-1.09) H 09/01/18 10:49 Problem List - Problems (1) Hyponatremia Code(s): E87.1 - HYPO-OSMOLALITY AND HYPONATREMIA (2) Mass of lung Code(s): R91.8 - OTHER NONSPECIFIC ABNORMAL FINDING OF LUNG FIELD (3) Pneumonia Code(s): J18.9 - PNEUMONIA, UNSPECIFIED ORGANISM Qualifiers: Pneumonia type: due to unspecified organism Laterality: left Lung location: upper lobe of lung Qualified Code(s): J18.1 - Lobar pneumonia, unspecified organism (4) HTN (hypertension) Code(s): I10 - ESSENTIAL (PRIMARY) HYPERTENSION (5) Hemoptysis Code(s): R04.2 - HEMOPTYSIS Assessment/Plan IMP LEFT CENTRAL LUNG MASS C/W LUNG CA LIKELY SMALL CELL OR SQUAMOUS CELL POST OBSTRUCTIVE PNEUMONIA HEMOPTYSIS HYPONATREMIA SIADH HTN PLAN ABX FLEX BRONCHOSCOPY WHEN HYPONATREMIA IMPROVES MONITOR LYTES FLUID RESTRICTION DR ARORA Problem List - Problems (1) Hyponatremia Code(s): E87.1 - HYPO-OSMOLALITY AND HYPONATREMIA (2) Mass of lung Code(s): R91.8 - OTHER NONSPECIFIC ABNORMAL FINDING OF LUNG FIELD (3) Pneumonia Code(s): J18.9 - PNEUMONIA, UNSPECIFIED ORGANISM Qualifiers: Pneumonia type: due to unspecified organism Laterality: left Lung location: upper lobe of lung Qualified Code(s): J18.1 - Lobar pneumonia, unspecified organism (4) HTN (hypertension) Code(s): I10 - ESSENTIAL (PRIMARY) HYPERTENSION (5) Hemoptysis Code(s): R04.2 - HEMOPTYSIS
--- NOTE | 2018-09-02 11:55 | PN ---
Teaching Attending Note Name of Resident: Alberto Gillette ATTENDING PHYSICIAN STATEMENT I saw and evaluated the patient. I reviewed the resident's note and discussed the case with the resident. I agree with the resident's findings and plan as documented. SUBJECTIVE: OBJECTIVE: Vital Signs Period Temp Pulse Resp BP Sys/Quiroga Pulse Ox Last 24 Hr 98.5 F-100.9 F 96-108 18-21 137-153/78-93 99-100 HEART: S1S2, RRR LUNGS: Crackles at left base ABDOMEN: Soft, non-tender, non-distended, normal BS EXTREMITIES: No edema Laboratory Results - last 24 hr 09/02/18 09/02/18 05:30 05:30 WBC 5.5 RBC 3.79 L Hgb 12.2 Hct 33.8 L MCV 89.2 MCH 32.3 MCHC 36.2 H RDW 12.8 Plt Count 330 MPV 6.6 L Sodium 126 L Potassium 4.5 Chloride 92 L Carbon Dioxide 24 Anion Gap 11 BUN 7 Creatinine 0.9 Creat Clearance w eGFR > 60 Random Glucose 112 H Calcium 8.4 L Phosphorus 3.9 Magnesium 2.1 Current Medications Generic Name Dose Route Start Last Admin Trade Name Freq PRN Reason Stop Dose Admin Acetaminophen 500 mg 09/01/18 08:14 09/02/18 09:09 Tylenol - PO 500 mg Q4H PRN Administration PAIN Albuterol Sulfate 1 amp 08/31/18 17:35 09/02/18 03:39 Ventolin 0.083% Nebulizer Soln - NEB 1 amp Q4H PRN Administration SHORT OF BREATH/WHEEZING Albuterol/Ipratropium 1 amp 08/31/18 17:45 09/02/18 11:32 Duoneb - NEB 1 amp RQID SAMMY Administration Enalapril Maleate 5 mg 09/01/18 10:00 09/02/18 09:09 Vasotec - PO 5 mg BID SAMMY Administration Levofloxacin 500 mg in 100 mls @ 100 mls/hr 08/31/18 20:00 09/02/18 09:08 Levaquin 500 Mg Premixed Ivpb - IVPB 100 mls/hr DAILY SAMMY Administration Protocol Clindamycin Phosphate 600 mg in 50 mls @ 100 mls/hr 08/31/18 02:00 09/02/18 09:09 Cleocin 600 Mg Premix Ivpb - IVPB 100 mls/hr Q8H-IV SAMMY Administration Protocol ASSESSMENT AND PLAN: This is a 63 year old man with a history of HTN who presented to the ED with a cough, SOB, malaise, dizziness, headache, and hemoptysis. 1. Sepsis secondary to post-obstructive pneumonia - Had temp 100.9 yesterday evening - Continue Levaquin, Clindamycin - Sputum culture growing normal bladimir - Blood cultures negative after 48 hours - Continue DuoNeb, albuterol as needed 2. Left lung mass - Likely malignancy - Flexible bronchoscopy today - MRI of brain negative for metastatic disease - Echo shows mild pulm HTN 3. Hemoptysis - Likely secondary to left lung malignancy - Hemoptysis is less - Hemoglobin stable 4. HTN - Continue Vasotec 5. 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
--- NOTE | 2018-09-02 13:25 | PN ---
Progress Note, Physician History of Present Illness: Pt seen and examined at bedside. Brochoscopy was cancelled secondary to hyponatremia. He denies shortness of breath. He denies cough. - Current Medication List Current Medications: Active Medications Acetaminophen (Tylenol -) 500 mg PO Q4H PRN PRN Reason: PAIN Last Admin: 09/02/18 09:09 Dose: 500 mg Albuterol Sulfate (Ventolin 0.083% Nebulizer Soln -) 1 amp NEB Q4H PRN PRN Reason: SHORT OF BREATH/WHEEZING Last Admin: 09/02/18 03:39 Dose: 1 amp Albuterol/Ipratropium (Duoneb -) 1 amp NEB RQID SAMMY Last Admin: 09/02/18 11:32 Dose: 1 amp Enalapril Maleate (Vasotec -) 5 mg PO BID SAMMY Last Admin: 09/02/18 09:09 Dose: 5 mg Levofloxacin (Levaquin 500 Mg Premixed Ivpb -) 500 mg in 100 mls @ 100 mls/hr IVPB DAILY SAMMY; Protocol Last Admin: 09/02/18 09:08 Dose: 100 mls/hr Clindamycin Phosphate (Cleocin 600 Mg Premix Ivpb -) 600 mg in 50 mls @ 100 mls /hr IVPB Q8H-IV SAMMY; Protocol Last Admin: 09/02/18 09:09 Dose: 100 mls/hr - Objective Vital Signs: Vital Signs Temperature 98.8 F 09/02/18 09:01 Pulse Rate 102 H 09/02/18 09:01 Respiratory Rate 18 09/02/18 09:01 Blood Pressure 153/92 09/02/18 09:01 O2 Sat by Pulse Oximetry (%) 100 09/02/18 09:00 Constitutional: Yes: Calm Eyes: Yes: Conjunctiva Clear HENT: Yes: Atraumatic Neck: Yes: Supple Cardiovascular: Yes: S1, S2 Respiratory: Yes: CTA Bilaterally Gastrointestinal: Yes: Soft Genitourinary: Yes: WNL Musculoskeletal: Yes: WNL Edema: No Neurological: Yes: Oriented Psychiatric: Yes: Oriented Labs: CBC, BMP 09/02/18 05:30 09/02/18 05:30 INR, PTT INR 1.27 (0.83-1.09) H 09/01/18 10:49 Problem List - Problems (1) HTN (hypertension) Code(s): I10 - ESSENTIAL (PRIMARY) HYPERTENSION (2) Hemoptysis Code(s): R04.2 - HEMOPTYSIS (3) Hyponatremia Code(s): E87.1 - HYPO-OSMOLALITY AND HYPONATREMIA (4) Mass of lung Code(s): R91.8 - OTHER NONSPECIFIC ABNORMAL FINDING OF LUNG FIELD (5) Pneumonia Code(s): J18.9 - PNEUMONIA, UNSPECIFIED ORGANISM Qualifiers: Pneumonia type: due to unspecified organism Laterality: left Lung location: upper lobe of lung Qualified Code(s): J18.1 - Lobar pneumonia, unspecified organism Assessment/Plan Current Medications Generic Name Dose Route Start Last Admin Trade Name Freq PRN Reason Stop Dose Admin Acetaminophen 500 mg 09/01/18 08:14 09/02/18 09:09 Tylenol - PO 500 mg Q4H PRN Administration PAIN Albuterol Sulfate 1 amp 08/31/18 17:35 09/02/18 03:39 Ventolin 0.083% Nebulizer Soln - NEB 1 amp Q4H PRN Administration SHORT OF BREATH/WHEEZING Albuterol/Ipratropium 1 amp 08/31/18 17:45 09/02/18 11:32 Duoneb - NEB 1 amp RQID SAMMY Administration Enalapril Maleate 5 mg 09/01/18 10:00 09/02/18 09:09 Vasotec - PO 5 mg BID SAMMY Administration Levofloxacin 500 mg in 100 mls @ 100 mls/hr 08/31/18 20:00 09/02/18 09:08 Levaquin 500 Mg Premixed Ivpb - IVPB 100 mls/hr DAILY SAMMY Administration Protocol Clindamycin Phosphate 600 mg in 50 mls @ 100 mls/hr 08/31/18 02:00 09/02/18 09:09 Cleocin 600 Mg Premix Ivpb - IVPB 100 mls/hr Q8H-IV SAMMY Administration Protocol Impression 1. hyponatremia likely siadh 2. PNA 3. lung mass 4. HTN Plan - restrict free water - will give salt tabs and a small dose of lasix - recommend that he not leave today - monitor serum sodium closely - discussed risks of hyponatremia with pt - will follow Dr George
[2018-09-02] MEDS ORDERED: FUROSEMIDE 20 MG TABLET (FP) PO ONE (13:45)
[2018-09-02] MEDS ORDERED: SODIUM CHLORIDE 1 GM TABLET PO ONE ×2 (14:00→22:00)
--- NOTE | 2018-09-02 14:08 | PN ---
Physical Exam: SUBJECTIVE: Patient seen and examined at bedside. Endorsing coughing up blood this am. Also c/o dry throat. Fever of 100.9 yesterday evening. OBJECTIVE: Vital Signs Period Temp Pulse Resp BP Sys/Quiroga Pulse Ox Last 24 Hr 98.5 F-100.9 F 96-108 18-21 137-153/85-93 99-100 GENERAL: NAD HEAD: NC/AT EYES: EOMI ENT: MMM NECK: Supple. LUNGS: Dec BS left base HEART: Tachycardic, No MRG appreciated ABDOMEN: NDNT No HSM EXTREMITIES: No CCE NEUROLOGICAL:No gross neuro def appreciated PSYCH: Normal mood, normal affect. SKIN:No rashes or lesions appreciated Laboratory Results - last 24 hr 09/02/18 09/02/18 05:30 05:30 WBC 5.5 RBC 3.79 L Hgb 12.2 Hct 33.8 L MCV 89.2 MCH 32.3 MCHC 36.2 H RDW 12.8 Plt Count 330 MPV 6.6 L Sodium 126 L Potassium 4.5 Chloride 92 L Carbon Dioxide 24 Anion Gap 11 BUN 7 Creatinine 0.9 Creat Clearance w eGFR > 60 Random Glucose 112 H Calcium 8.4 L Phosphorus 3.9 Magnesium 2.1 Active Medications Generic Name Dose Route Start Last Admin Trade Name Freq PRN Reason Stop Dose Admin Acetaminophen 500 mg 09/01/18 08:14 09/02/18 09:09 Tylenol - PO 500 mg Q4H PRN Administration PAIN Albuterol Sulfate 1 amp 08/31/18 17:35 09/02/18 03:39 Ventolin 0.083% Nebulizer Soln - NEB 1 amp Q4H PRN Administration SHORT OF BREATH/WHEEZING Albuterol/Ipratropium 1 amp 08/31/18 17:45 09/02/18 11:32 Duoneb - NEB 1 amp RQID SAMMY Administration Enalapril Maleate 5 mg 09/01/18 10:00 09/02/18 09:09 Vasotec - PO 5 mg BID SAMMY Administration Levofloxacin 500 mg in 100 mls @ 100 mls/hr 08/31/18 20:00 09/02/18 09:08 Levaquin 500 Mg Premixed Ivpb - IVPB 100 mls/hr DAILY SAMMY Administration Protocol Clindamycin Phosphate 600 mg in 50 mls @ 100 mls/hr 08/31/18 02:00 09/02/18 09:09 Cleocin 600 Mg Premix Ivpb - IVPB 100 mls/hr Q8H-IV SAMMY Administration Protocol Sodium Chloride 1 gm 09/02/18 22:00 Sodium Chloride Tablet - PO 09/02/18 22:01 ONCE ONE ASSESSMENT/PLAN: 63 y/o M w/ PMHx HTN p/w cough, SOB, malaise x 1 week, hemoptysis of large volume clots x 1 day, additionally experiencing dizziness and headaches and had 1 episode of seizure-like activity. Initial imaging studies demonstrate obstructive PNA 2/2 likely lung Ca. #Obstructive pneumonia 2/2 lung mass -Lexofloxacin/Clindamycin DAY 3. 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 Brain MRI- Negative for any intracranial masses or lesions -Pulmonology on board. Bronchoscopy this week for tissue biopsy and to assess mass . -Oncology consulted- Dr Piña/Dr Lizarraga. CT chest revealed 9x7cm spiculated mass encasing left main pulmonary artery, post-obstructive lingular consolidation, left pleural effusion, mediastinal lymphadenopathy, concerning for malignancy. Awaiting Broncho for tissue biopsy. -Bronchoscopy cancelled this AM due to hyponatremia of 126. Salt tabs and Lasix per renal . #HTN - Enalapril 5 mg po bid #FEN -No Fluids -monitor and replete lytes -regular diet #PPx -DVT: will hold in light of hemoptysis -GI: not indicated #dispo - tele
--- NOTE | 2018-09-02 14:39 | DS ---
Physical Exam: SUBJECTIVE: Patient seen and examined at bedside. Endorsing coughing up blood this am. Also c/o dry throat. Fever of 100.9 yesterday evening OBJECTIVE: Vital Signs Period Temp Pulse Resp BP Sys/Quiroga Pulse Ox Last 24 Hr 98.5 F-100.9 F 96-108 18-21 137-153/85-93 99-100 PHYSICAL EXAM GENERAL: NAD HEAD: NC/AT EYES: EOMI ENT: MMM NECK: Supple. LUNGS: Dec BS left base HEART: Tachycardic, No MRG appreciated ABDOMEN: NDNT No HSM EXTREMITIES: No CCE NEUROLOGICAL:No gross neuro def appreciated PSYCH: Normal mood, normal affect. SKIN:No rashes or lesions appreciated LABS Laboratory Results - last 24 hr 09/02/18 09/02/18 05:30 05:30 WBC 5.5 RBC 3.79 L Hgb 12.2 Hct 33.8 L MCV 89.2 MCH 32.3 MCHC 36.2 H RDW 12.8 Plt Count 330 MPV 6.6 L Sodium 126 L Potassium 4.5 Chloride 92 L Carbon Dioxide 24 Anion Gap 11 BUN 7 Creatinine 0.9 Creat Clearance w eGFR > 60 Random Glucose 112 H Calcium 8.4 L Phosphorus 3.9 Magnesium 2.1 HOSPITAL COURSE: Date of Admission:08/30/18 Pt is a 63 y/o gentleman with a pmh of HTN who presented to [facility] c/o hemoptysis with cough, dizziness, and subjective fevers that has progressively worsened over the past few days. Pt was treated with I.V antibiotics, initially Ceftriaxone/Azithromycin which was switched to Levofloxacin/Clindamycin. Pt's BP was also markedly elevated with systolics in the 180's. Enalapril was increased from 5 MG daily to 5 mg BID. Pt also underwent a Chest CT with Contrast which revealed a very large central left lung mass invading the mediastinum and encasing the left main pulmonary artery. Mass was strongly suspicious for malignancy per Radiology report, please see report for details. Also revealed a postobstructive lingula consolidation, mild mediastinal lymphadenopathy, and a left pleural effusion. Furthermore, pt underwent an MRI of his brain which did not reveal any signs of metastases or acute intracranial pathology. On BMP, pt's sodium was markedly low, 126. Nephrology was consulted and pt was advised to limit water intake to 1.2 L per day. Pt was also treated with Salt tablets. Pt was ultimately scheduled for a bronchoscopy to assess the lung mass as well as to receive a biopsy. Bronchoscopy was ultimately cancelled on planned day due to hyponatremia. Pt became frustrated and signed out AMA. Date of Discharge: 09/02/18 Minutes to complete discharge: 35 Discharge Summary Reason For Visit: LUNG MASS PNEUMONIA Current Active Problems HTN (hypertension) (Acute) Hemoptysis (Acute) Hyponatremia (Acute) Mass of lung (Acute) Pneumonia (Acute) Condition: Fair - Instructions Disposition: AGAINST MEDICAL ADVICE - Home Medications Comprehensive Discharge Medication List: Ambulatory Orders Enalapril Maleate [Vasotec -] 5 mg PO BID #60 tablet 09/02/18 Levofloxacin [Levaquin] 500 mg PO DAILY #4 tablet 09/02/18 This patient is new to me today: No Emergency Visit: Yes ED Registration Date: 08/30/18 Care time: The patient presented to the Emergency Department on the above date and was hospitalized for further evaluation of their emergent condition. Critical Care patient: No - Discharge Referral Referred to [facility] No
== END 2018-09-02 16:00 | disposition left against medical advice (07) | DRG 720 ==
LOC: JER 19:12 → JERBED 22:27 → J4W 08-31 05:14
PROVIDERS: ADMIT Internal Medicine; ATTEND Internal Medicine
DX: A41.9 Sepsis, unspecified organism (principal); J90 Pleural effusion, not elsewhere classified; E22.2 Syndrome of inappropriate secretion of antidiuretic hormone; J18.9 Pneumonia, unspecified organism; R04.2 Hemoptysis; R91.8 Other nonspecific abnormal finding of lung field; R59.1 Generalized enlarged lymph nodes; I10 Essential (primary) hypertension; Z87.891 Personal history of nicotine dependence; R73.9 Hyperglycemia, unspecified
CPT/HCPCS: 36415; 70553-TC; 71046-TC-FY; 71260-TC; 80048; 80053; 80061; 81003; 82550; 82803; 83036; 83605; 83615; 83721; 83735; 83930; 83935; 84100; 84300; 84443; 84484; 85025; 85027; 85379; 85610; 85651; 85730; 86140; 86480; 87040; 87070; 87086; 87205; 87804; 93005; 93010; 93306-TC; 94640; 99282-25; C1887; J7030